=== PATIENT | female | born 1975 ===

== ENCOUNTER 2017-11-09 16:41 | Emergency (ER) | payer OTHER ==
[~2017-11-09] VITALS: Ht 154.9 cm; Wt 72.6 kg
[2017-11-09] MEDS ORDERED: SULF1TAB35 PO (17:31)
[2017-11-09] MEDS ORDERED: MUPI22OI2 TP (17:31)
[2017-11-09] MEDS ORDERED: BUTA1CAP17 PO (17:31)
--- NOTE | 2017-11-09 17:31 | ED Headache ---
General Chief Complaint: Head/Cervical Problems Stated Complaint: FACIAL SWELLING,HEADACHE Nursing Triage Note: PT STATES SHE HAS HAD A CONSTANT HEADACHE THAT STARTED LAST WEEK. PT STATES WHEN SHE WOKE UP ON MONDAY AND HAD SORE IN HER RIGHT EYEBROW. PT STATES THE PAIN THEN BEGAN RADIATING DOWN HER NECK AND TO THE BACK OF HER HEAD. PT STATES SHE FEELS THE RIGHT SIDE OF HER FACE IS SWOLLEN. Nursing Sepsis Screen: No Definite Risk Source: patient Exam Limitations: no limitations History of Present Illness Date Seen by Provider: Nov 09, 2017 Time Seen by Provider: 17:27 Initial Comments to ER with reports of a right-sided headache for 2-3 days. She's also had a pustule to the right eyebrow. She has a history of migraines but they're typically midline, this was right-sided. No fevers. Timing/Duration: other (3 days) Severity/Quality: moderate Location: frontal Associated Symptoms: denies symptoms Allergies and Home Medications Allergies Coded Allergies: No Known Allergies (Verified Allergy, Unknown, 09/08/05) Patient Home Medication List Home Medication List Reviewed: Yes Review of Systems Constitutional: see HPI Eyes: No Symptoms Reported Ears, Nose, Mouth, Throat: no symptoms reported Respiratory: no symptoms reported Cardiovascular: no symptoms reported Genitourinary: no symptoms reported Musculoskeletal: no symptoms reported Skin: no symptoms reported Psychiatric/Neurological: No Symptoms Reported Past Wxhqkon-Ezkuza-Owdjvb Hx Patient Social History Alcohol Use: Denies Use Recreational Drug Use: No 2nd Hand Smoke Exposure: No Recent Foreign Travel: No Contact w/Someone Who Travel: No Recent Infectious Disease Expo: No Recent Hopitalizations: No Physical Abuse: No Sexual Abuse: No Seasonal Allergies Seasonal Allergies: Yes Past Medical History Respiratory: No Cardiac: No Neurological: No Genitourinary: No Gastrointestinal: No Musculoskeletal: No Endocrine: No HEENT: No Cancer: No Psychosocial: No Nursing Suicide Risk Score: 0 Integumentary: No Blood Disorders: No Physical Exam Vital Signs Vital Signs - First Documented 11/09/17 16:51 Temp 96.6 Pulse 69 Resp 14 B/P (MAP) 146/103 (117) O2 Delivery Room Air Capillary Refill : Less Than 3 Seconds General Appearance: WD/WN, no apparent distress HEENT: PERRL/EOMI, normal ENT inspection, other (small induratedarea of erythema about 1 cm in diameter to the medial right eyebrow.. This was unroofed with a blunt needle, culture collected and sent to lab.) Neck: non-tender, full range of motion Respiratory: no respiratory distress, no accessory muscle use Extremities: normal range of motion, non-tender Psychiatric: alert, oriented x 3 Crainal Nerves: normal hearing, normal speech, PERRL Motor/Sensory: no motor deficit, no sensory deficit Skin: normal color, warm/dry Progress/Results/Core Measures Results/Orders My Orders Orders - ASHLEIGH BRANHAM APRN Wound Culture (11/09/17 17:26) Vital Signs/I&O 11/09/17 16:51 Temp 96.6 Pulse 69 Resp 14 B/P (MAP) 146/103 (117) O2 Delivery Room Air Blood Pressure Mean: 117 Departure Impression Primary Impression: Headache Additional Impression: pustule of eyebrow Disposition: 01 HOME, SELF-CARE Condition: Stable Departure-Patient Inst. Decision time for Depature: 17:28 Referrals: ELLA WADE MD (PCP/Family) Primary Care Physician Patient Instructions: Headache, Adult (DC) Add. Discharge Instructions: 1. Medication as directed 2. Return to ER for any worsening 3. Follow-up with your doctor within 48 hours for recheck.All discharge instructions reviewed with patient and/or family. Voiced understanding. Scripts Mupirocin (Mupirocin) 22 Gm Oint...g. 1 GM TP BID, #1 TUBE Prov: ASHLEIGH BRANHAM APRN 11/09/17 Sulfamethoxazole/Trimethoprim (Bactrim Ds Tablet) 1 Each Tablet 1 EACH PO BID, #14 TAB Prov: ASHLEIGH BRANHAM APRN 11/09/17 Butalbital/Aspirin/Caffeine (Fiorinal 50-325-40 mg Capsule) 1 Each Capsule 1 EACH PO Q4H PRN for HEADACHE, #5 CAP Prov: ASHLEIGH BRANHAM APRN 11/09/17 ASHLEIGH BRANHAM APRN Nov 09, 2017 17:31
[2017-11-09 17:36] VITALS: BP 131/88
--- OUTSIDE RECORDS SUMMARY | 2017-11-09 18:03 | XMS REPORT ---
Author Author RAJIV MONTOYA [facility] Address [address] [place] [address] Care Team Providers Care Product Manager Name Role Phone RAJIV MONTOYA Unavailable PROBLEMS Type Condition ICD9-CM Code [id number] Code Onset Dates Condition Status SNOMED Code Problem Breast lump on right side at 7 o'clock position N63 Active [id number] ALLERGIES No Known Allergies SOCIAL HISTORY Never Assessed PLAN OF CARE Activity Details Follow Up prn with pcp Reason: VITAL SIGNS Height 63 in 2016-09-22 Weight 160.5 lbs 2016-09-22 Temperature 97.1 degrees Fahrenheit 2016-09-22 Heart Rate 72 bpm 2016-09-22 Respiratory Rate 16 2016-09-22 BMI 28.43 kg/m2 2016-09-22 Blood pressure systolic 104 mmHg 2016-09-22 Blood pressure diastolic 66 mmHg 2016-09-22 MEDICATIONS Medication Instructions Dosage Frequency Start Date End Date Duration Status PredniSONE 20 mg Orally Once a day 1 tablet 24h September, September, 07 days Active RESULTS No Results PROCEDURES No Known procedures IMMUNIZATIONS No Known Immunizations MEDICAL (GENERAL) HISTORY Type Description Date Surgical History Appendectomy
== END 2017-11-09 17:36 | disposition home or self-care (01) ==
LOC: EDUNIT# 16:41 → ER 16:44
DX: R51 Headache (principal); L08.9 Local infection of the skin and subcutaneous tissue, unspecified
CPT/HCPCS: 87070; 87077; 87186; 87205; 99282

== ENCOUNTER 2019-02-14 17:19 | Emergency (ER) | payer OTHER ==
[~2019-02-14] VITALS: Ht 160 cm; Wt 67.7 kg
[~2019-02-14 17:19] MED LIST: BUTA1CAP17 PO; MUPI22OI2 TP; SULF1TAB35 PO
--- NOTE | 2019-02-14 17:38 | ED Abdominal Pain ---
General Stated Complaint: LOWER ABD PAIN Source of Information: Patient Exam Limitations: No Limitations History of Present Illness Date Seen by Provider: Feb 14, 2019 Time Seen by Provider: 17:36 Initial Comments To ER with reports of left lower abdominal pain since Monday that's also when her menstrual cycle started. She gets this pain left-sided only consistently with every menstrual cycle for over a year. Today her pain is much worse than usual and she has an associated headache and nausea. She has taken nothing at home for the pain Timing/Duration: Intermittent Severity/Quality: Moderate Location: LLQ Radiation: No Radiation Activities at Onset: None Associated Symptoms: Nausea/Vomiting Allergies and Home Medications Allergies Coded Allergies: No Known Allergies (Verified Allergy, Unknown, 09/08/05) Home Medications Butalbital/Aspirin/Caffeine 1 Each Capsule, 1 EACH PO Q4H PRN for HEADACHE Prescribed by: ASHLEIGH BRANHAM on 11/09/171730 Cephalexin 500 Mg Capsule, 500 MG PO TID Prescribed by: ASHLEIGH BRANHAM on 02/14/191902 Mupirocin 22 Gm Oint...g., 1 GM TP BID Prescribed by: ASHLEIGH BRANHAM on 11/09/171730 Sulfamethoxazole/Trimethoprim 1 Each Tablet, 1 EACH PO BID Prescribed by: ASHLEIGH BRANHAM on 11/09/171730 Patient Home Medication List Home Medication List Reviewed: Yes Review of Systems Review of Systems Constitutional: see HPI EENTM: No Symptoms Reported Respiratory: No Symptoms Reported Cardiovascular: No Symptoms Reported Gastrointestinal: See HPI, Abdominal Pain Genitourinary: No Symptoms Reported Musculoskeletal: no symptoms reported Skin: no symptoms reported Psychiatric/Neurological: No Symptoms Reported Endocrine: No Symptoms Reported Hematologic/Lymphatic: No Symptoms Reported Past Jzxgtec-Xruuqi-Tzgrlr Hx Patient Social History 2nd Hand Smoke Exposure: No Recent Foreign Travel: No Contact w/Someone Who Travel: No Recent Hopitalizations: No Seasonal Allergies Seasonal Allergies: Yes Past Medical History Respiratory: No Cardiac: No Neurological: No Genitourinary: No Gastrointestinal: No Musculoskeletal: No Endocrine: No HEENT: No Cancer: No Psychosocial: No Integumentary: No Blood Disorders: No Physical Exam Vital Signs Vital Signs - First Documented 02/14/19 17:28 Temp 36.5 Pulse 84 Resp 17 B/P (MAP) 121/95 (104) Pulse Ox 97 O2 Delivery Room Air Capillary Refill : Height/Weight/BMI Height: 5'1.00" Weight: 160lbs. oz. 72.268023cj; BMI Method:Stated General Appearance: WD/WN, no apparent distress Respiratory: no respiratory distress, no accessory muscle use Cardiovascular: regular rate, rhythm, no murmur Gastrointestinal: normal bowel sounds, soft, tenderness (left side of the abdomen is very tender to palpation) Extremities: normal range of motion, non-tender Neurologic/Psychiatric: alert, normal mood/affect, oriented x 3 Skin: normal color, warm/dry Progress/Results/Core Measures Results/Orders Lab Results Laboratory Tests Test 02/14/19 17:37 02/14/19 18:09 Range/Units White Blood Count 7.3 4.3-11.0 10^3/uL Red Blood Count 4.79 4.35-5.85 10^6/uL Hemoglobin 13.5 11.5-16.0 G/DL Hematocrit 40 35-52 % Mean Corpuscular Volume 84 80-99 FL Mean Corpuscular Hemoglobin 28 25-34 PG Mean Corpuscular Hemoglobin Concent 34 32-36 G/DL Red Cell Distribution Width 13.4 10.0-14.5 % Platelet Count 317 130-400 10^3/uL Mean Platelet Volume 9.4 7.4-10.4 FL Neutrophils (%) (Auto) 58 42-75 % Lymphocytes (%) (Auto) 34 12-44 % Monocytes (%) (Auto) 6 0-12 % Eosinophils (%) (Auto) 3 0-10 % Basophils (%) (Auto) 0 0-10 % Neutrophils # (Auto) 4.2 1.8-7.8 X 10^3 Lymphocytes # (Auto) 2.4 1.0-4.0 X 10^3 Monocytes # (Auto) 0.4 0.0-1.0 X 10^3 Eosinophils # (Auto) 0.2 0.0-0.3 10^3/uL Basophils # (Auto) 0.0 0.0-0.1 10^3/uL Sodium Level 139 135-145 MMOL/L Potassium Level 3.7 3.6-5.0 MMOL/L Chloride Level 108 H 98-107 MMOL/L Carbon Dioxide Level 24 21-32 MMOL/L Anion Gap 7 5-14 MMOL/L Blood Urea Nitrogen 10 7-18 MG/DL Creatinine 0.65 0.60-1.30 MG/DL Estimat Glomerular Filtration Rate > 60 BUN/Creatinine Ratio 15 Glucose Level 102 70-105 MG/DL Calcium Level 9.1 8.5-10.1 MG/DL Corrected Calcium 9.1 8.5-10.1 MG/DL Total Bilirubin 0.2 0.1-1.0 MG/DL Aspartate Amino Transf (AST/SGOT) 32 5-34 U/L Alanine Aminotransferase (ALT/SGPT) 38 0-55 U/L Alkaline Phosphatase 76 40-136 U/L Total Protein 8.1 6.4-8.2 GM/DL Albumin 4.0 3.2-4.5 GM/DL Serum Test, Qualitative NEGATIVE NEGATIVE Urine Color YELLOW Urine Clarity CLEAR Urine pH 7 5-9 Urine Specific [place] 1.005 L 1.016-1.022 Urine Protein NEGATIVE NEGATIVE Urine Glucose (UA) NEGATIVE NEGATIVE Urine Ketones NEGATIVE NEGATIVE Urine Nitrite NEGATIVE NEGATIVE Urine Bilirubin NEGATIVE NEGATIVE Urine Urobilinogen NORMAL NORMAL MG/DL Urine Leukocyte Esterase 2+ H NEGATIVE Urine RBC (Auto) 5+ H NEGATIVE Urine RBC 10-25 H /HPF Urine WBC 5-10 H /HPF Urine Squamous Epithelial Cells 10-25 H /HPF Urine Crystals NONE /LPF Urine Bacteria FEW H /HPF Urine Casts NONE /LPF Urine Mucus NEGATIVE /LPF Urine Culture Indicated YES My Orders Orders - ASHLEIGH BRANHAM APRN Cbc With Automated Diff (02/14/19 17:35) Comprehensive Metabolic Panel (02/14/19 17:35) Hcg,Qualitative Serum (02/14/19 17:35) Ed Iv/Invasive Line Start (02/14/19 17:35) Ct Abdomen/Pelvis W (02/14/19 17:35) Ns Iv 1000 Ml (Sodium Chloride 0.9%) (02/14/19 17:45) Ketorolac Injection (Toradol Injection) (02/14/19 17:45) Ondansetron Injection (Zofran Injectio (02/14/19 17:45) Iohexol Injection (Omnipaque 350 Mg/Ml 1 (02/14/19 17:45) Received Contrast (Hold Metformin- Contr (02/14/19 17:45) Sodium Chloride Flush (Catheter Flush Sy (02/14/19 17:45) Ns (Ivpb) (Sodium Chloride 0.9% Ivpb Bag (02/14/19 17:45) Prochlorperazine Injection (Compazine In (02/14/19 19:00) Diphenhydramine Injection (Benadryl Inje (02/14/19 19:00) Medications Given in ED Current Medications Medications Dose Ordered Sig/Edwin Route Start Time Stop Time Status Last Admin Dose Admin Iohexol 100 ml ONCE ONCE IV 02/14/19 17:45 02/14/19 17:46 DC 02/14/19 18:27 85 ML Ketorolac Tromethamine 30 mg ONCE ONCE IVP 02/14/19 17:45 02/14/19 17:46 DC 02/14/19 17:45 30 MG Ondansetron HCl 8 mg ONCE ONCE IVP 02/14/19 17:45 02/14/19 17:46 DC 02/14/19 17:45 8 MG Sodium Chloride 10 ml NEEDED PRN IV 02/14/19 17:45 02/14/19 18:27 10 ML Sodium Chloride 100 ml ONCE ONCE IV 02/14/19 17:45 02/14/19 17:46 DC 02/14/19 18:27 80 ML Vital Signs/I&O 02/14/19 17:28 Temp 36.5 Pulse 84 Resp 17 B/P (MAP) 121/95 (104) Pulse Ox 97 O2 Delivery Room Air Departure Impression Primary Impression: Menstrual pain Additional Impressions: Headache Qualified Codes: R51 - Headache Urinary tract infection Disposition: HOME, SELF-CARE Condition: Stable Departure-Patient Inst. Decision time for Depature: 19:01 Referrals: ELLA WADE MD (PCP/Family) Primary Care Physician Patient Instructions: Painful Periods, Headache, Adult Add. Discharge Instructions: 1. Call one of the gynecologists listed to make an appointment to be seen for follow-up. Call them tomorrow to make an appointment. Next menstrual cycle use Midol ykqm-elg-qeczlup medication for pain. Return to ER for any fevers or other concerns. Scripts Cephalexin (Keflex) 500 Mg Capsule 500 MG PO TID, #15 CAP Prov: ASHLEIGH BRANHAM STOCK ANALYST 02/14/19 ASHLEIGH BRANHAM STOCK ANALYST Feb 14, 2019 17:38
[2019-02-14] MEDS ORDERED: ONDANSETRON 4 MG/2 ML (SDV) Z0FRAN IVP ONE (17:45)
[2019-02-14] MEDS ORDERED: IOHEXOL 350 MG/ML 100 ML (OMNIPAQUE 350) VIAL IV ONE (17:45)
[2019-02-14] MEDS ORDERED: CATHETER FLUSH 10 ML SYR IV PRN (17:45)
[2019-02-14] MEDS ORDERED: NS 100 ML (IVPB) BAG IV ONE (17:45)
[2019-02-14] MEDS ORDERED: NS IV 1000 ML 1,000 ML IV SCH (17:45)
[2019-02-14] MEDS ORDERED: KETOROLAC 30 MG/ML VIAL IVP ONE (17:45)
[2019-02-14] MEDS ORDERED: HOLD METFORMIN - RECEIVED CONTRAST 20 ML VIAL IV SCH (17:45)
[2019-02-14 17:46] LABS: BASOPHILS % (AUTO) 0 % (0-10); EOSINOPHILS # (AUTO) 0.2 10^3/uL (0.0-0.3); EOSINOPHILS % (AUTO) 3 % (0-10); HEMATOCRIT 40 % (35-52); HEMOGLOBIN 13.5 G/DL (11.5-16.0); LYMPHOCYTES # (AUTO) 2.4 X 10^3 (1.0-4.0); LYMPHOCYTES % (AUTO) 34 % (12-44); MEAN CORPUSCULAR HEMOGLOBIN 28 PG (25-34); MEAN CORPUSCULAR HGB CONC 34 G/DL (32-36); MEAN CORPUSCULAR VOLUME 84 FL (80-99); MEAN PLATELET VOLUME 9.4 FL (7.4-10.4); MONOCYTES # (AUTO) 0.4 X 10^3 (0.0-1.0); MONOCYTES % (AUTO) 6 % (0-12); NEUTROPHILS # (AUTO) 4.2 X 10^3 (1.8-7.8); NEUTROPHILS % (AUTO) 58 % (42-75); PLATELET COUNT 317 10^3/uL (130-400); RED CELL DISTRIBUTION WIDTH 13.4 % (10.0-14.5); WHITE BLOOD COUNT 7.3 10^3/uL (4.3-11.0)
[2019-02-14 18:08] LABS: ALANINE AMINOTRANSFERASE 38 U/L (0-55); ALKALINE PHOSPHATASE 76 U/L (40-136); BILIRUBIN,TOTAL 0.2 MG/DL (0.1-1.0); BUN/CREATININE RATIO 15; CALCIUM 9.1 MG/DL (8.5-10.1); CARBON DIOXIDE 24 MMOL/L (21-32); CHLORIDE 108 MMOL/L (98-107); CREATININE SERUM 0.65 MG/DL (0.60-1.30); GFR ESTIMATED > 60; GLUCOSE 102 MG/DL (70-105); POTASSIUM 3.7 MMOL/L (3.6-5.0); SODIUM 139 MMOL/L (135-145); TOTAL PROTEIN 8.1 GM/DL (6.4-8.2)
[2019-02-14 18:17] LABS: BILIRUBIN,URINE NEGATIVE (NEGATIVE); CLARITY,URINE CLEAR; COLOR,URINE YELLOW; GLUCOSE, URINE (UA) NEGATIVE (NEGATIVE); KETONES,URINE NEGATIVE (NEGATIVE); LEUKOCYTE ESTERASE ,URINE 2+ (NEGATIVE); NITRITE,URINE NEGATIVE (NEGATIVE); PH,URINE 7 (5-9); PROTEIN,URINE NEGATIVE (NEGATIVE); UROBILINOGEN,URINE NORMAL (NORMAL)
[2019-02-14 18:33] LABS: BACTERIA,URINE FEW /HPF
--- NOTE | 2019-02-14 18:41 | Diagnostic Imaging Report ---
PROCEDURE: CT abdomen and pelvis with contrast. TECHNIQUE: Multiple contiguous axial images were obtained through the abdomen and pelvis after administration of intravenous contrast. Auto Exposure Controls were utilized during the CT exam to meet ALARA standards for radiation dose reduction. DATE: February 14, 2019. COMPARISON: Right upper quadrant abdominal ultrasound June 02, 2009. INDICATION: 43-year-old female, nausea and dizziness. Left lower quadrant and flank pain. FINDINGS: The visualized portions of the lung bases are clear. The heart is not enlarged. There is no pericardial effusion. The liver is unremarkable in size and contour. There is no identified liver lesion. The main, right, and left portal veins are patent. There is a possible gallstone without evidence of acute cholecystitis. There is no biliary ductal dilation. The main pancreatic duct is not abnormally dilated. Unremarkable appearance of the pancreatic parenchyma. The spleen is normal in size. There is an accessory splenule on axial image 21. The adrenal glands are unremarkable. Unremarkable appearance of the renal parenchyma. The urinary collecting systems are not distended. There is no identified renal or ureteral stone. The urinary bladder is unremarkable. Grossly unremarkable appearance of the uterus and adnexa for patient age. There is no evidence of acute appendicitis. There is no free intraperitoneal air. There is no drainable fluid collection. There is no free pelvic fluid. There is no identified abnormally enlarged lymph node in the abdomen or pelvis which meets CT size criteria for adenopathy. There is no identified acute bony abnormality. IMPRESSION: CT ABDOMEN AND PELVIS. 1. No identified acute abnormality in the abdomen or pelvis. Dictated by: Dictated on workstation # [id number]
[2019-02-14] MEDS ORDERED: PROCHLORPERAZINE 10 MG/2ML INJ (COMPAZINE) IV ONE (19:00)
[2019-02-14] MEDS ORDERED: diphenhydrAMINE 50 MG/ML INJ (BENADRYL) IVP ONE (19:00)
[2019-02-14] MEDS ORDERED: CEPH-507 PO (19:03)
[2019-02-14 20:03] VITALS: BP 119/88
== END 2019-02-14 20:03 | disposition home or self-care (01) ==
LOC: EDUNIT# 17:19 → ER 17:20
DX: N94.6 Dysmenorrhea, unspecified (principal); N39.0 Urinary tract infection, site not specified; R51 Headache; Z79.82 Long term (current) use of aspirin
CPT/HCPCS: 36415; 74177; 80053; 81000; 84703; 85025; 87088; 96361; 96374; 96375

== ENCOUNTER 2019-04-27 23:53 | Emergency (ER) | payer OTHER ==
[~2019-04-27] VITALS: Ht 160 cm; Wt 68.0 kg
[~2019-04-27 23:53] MED LIST changes: +CEPH-507 PO
[2019-04-28] MEDS ORDERED: IBUPROFEN TABLET 200 MG TAB PO ONE (00:45)
--- NOTE | 2019-04-28 01:16 | ED General ---
General Chief Complaint: Cough/Cold/Flu Symptoms Stated Complaint: FEVER,COUGH Nursing Triage Note: pt presents to ed room 6 ambulatory c/o cough and fever that has been ongoing since monday. Nursing Sepsis Screen: No Definite Risk Source of Information: Patient Exam Limitations: No Limitations History of Present Illness Date Seen by Provider: Apr 28, 2019 Time Seen by Provider: 00:27 Initial Comments This 43-year-old woman presents to the emergency room with complaints of flulike symptoms including fever, headache, sore throat, congestion, runny nose, cough, and chest discomfort for the past 5 days. She took a cold and flu medication at home. She did not receive a flu vaccine this year. Allergies and Home Medications Allergies Coded Allergies: No Known Allergies (Verified Allergy, Unknown, 09/08/05) Home Medications Butalbital/Aspirin/Caffeine 1 Each Capsule, 1 EACH PO Q4H PRN for HEADACHE Prescribed by: ASHLEIGH BRANHAM on 11/09/17 173 Cephalexin 500 Mg Capsule, 500 MG PO TID Prescribed by: ASHLEIGH BRANHAM on 02/14/19 1903 Mupirocin 22 Gm Oint...g., 1 GM TP BID Prescribed by: ASHLEIGH BRANHAM on 11/09/17 173 Sulfamethoxazole/Trimethoprim 1 Each Tablet, 1 EACH PO BID Prescribed by: ASHLEIGH BRANHAM on 11/09/171730 Patient Home Medication List Home Medication List Reviewed: Yes Review of Systems Review of Systems Constitutional: see HPI EENTM: see HPI Respiratory: see HPI Cardiovascular: no symptoms reported Gastrointestinal: no symptoms reported Genitourinary: no symptoms reported : No LMP: Apr 07, 2019 Musculoskeletal: see HPI Skin: no symptoms reported Psychiatric/Neurological: See HPI Hematologic/Lymphatic: No Symptoms Reported Past Xghlejn-Bpbxcx-Ruiisu Hx Past Med/Social Hx: Reviewed Nursing Past Med/Soc Hx Patient Social History Alcohol Use: Denies Use Recreational Drug Use: No Smoking Status: Never a Smoker 2nd Hand Smoke Exposure: No Recent Foreign Travel: No Contact w/Someone Who Travel: No Recent Infectious Disease Expo: No Recent Hopitalizations: No Physical Abuse: No Sexual Abuse: No Mistreated: No Fear: No Immunizations Up To Date Tetanus Booster (TDap): Unknown PED Vaccines UTD: Yes Seasonal Allergies Seasonal Allergies: Yes Past Medical History Surgeries: Yes Appendectomy Respiratory: No Cardiac: No Neurological: No : No Last Menstrual Period: Apr 07, 2019 Genitourinary: No Gastrointestinal: No Musculoskeletal: No Endocrine: No HEENT: No Cancer: No Psychosocial: No Integumentary: No Blood Disorders: No Physical Exam Vital Signs Vital Signs - First Documented 04/28/19 04/28/19 00:02 00:05 Temp 37.4 Pulse 122 Resp 20 B/P (MAP) 153/107 (122) Pulse Ox 99 O2 Delivery Room Air Capillary Refill : Less Than 3 Seconds Height, Weight, BMI Height: 5'1.00" Weight: 160lbs. oz. 72.678649yu; 26.00 BMI Method:Stated General Appearance: No Apparent Distress, WD/WN HEENT: PERRL/EOMI, TMs Normal, Normal ENT Inspection, Pharynx Normal Neck: Normal Inspection Respiratory: Lungs Clear, Normal Breath Sounds, No Accessory Muscle Use, No Respiratory Distress; No Crackles Cardiovascular: No Edema, No Murmur, Tachycardia Extremity: Normal Inspection, No Pedal Edema Neurologic/Psychiatric: Alert, Oriented x3, No Motor/Sensory Deficits, Normal Mood/Affect, electrical logger II-XII Norm as Tested Skin: Normal Color, Warm/Dry Progress/Results/Core Measures Suspected Sepsis Recent Fever Within 48 Hours: No Infection Criteria Present: Suspected New Infection New/Unexplained Altered Menta: No Sepsis Screen: No Definite Risk SIRS Temperature: Pulse: 122 Respiratory Rate: 20 Blood Pressure 153 /107 Mean: 122 Results/Orders Lab Results Laboratory Tests Test 04/28/19 00:30 Range/Units Urine Test NEGATIVE NEGATIVE Micro Results Microbiology 04/28/19 Influenza Types A,B Antigen (DIMITRY) - Final, Complete My Orders Orders - MICHELLE FLORES MD Influenza A And B Antigens (04/28/19 00:29) Ibuprofen Tablet (Motrin Tablet) (04/28/19 00:45) Hcg,Qualitative Urine (04/28/19 00:44) Medications Given in ED Current Medications Medications Dose Ordered Sig/Edwin Route Start Time Stop Time Status Last Admin Dose Admin Ibuprofen 600 mg ONCE ONCE PO 04/28/19 00:45 04/28/19 00:46 DC 04/28/19 00:49 600 MG Vital Signs/I&O 04/28/19 04/28/19 04/28/19 00:02 00:05 01:22 Temp 37.4 37.4 Pulse 122 122 Resp 20 20 B/P (MAP) 153/107 (122) 153/107 (122) Pulse Ox 99 99 O2 Delivery Room Air Capillary Refill : Less Than 3 Seconds Blood Pressure Mean: 122 Progress Note : Progress Note Patient received ibuprofen for headache and myalgias. She tested positive for influenza A. Unfortunately, she is too far into the illness for Tamiflu to be effective. Departure Impression Primary Impression: Influenza Disposition: 01 HOME, SELF-CARE Condition: Improved Departure-Patient Inst. Decision time for Depature: 01:14 Referrals: NO,LOCAL PHYSICIAN (PCP/Family) Primary Care Physician Patient Instructions: Flu, Adult (DC) Add. Discharge Instructions: Drink plenty of clear liquids. To manage fever and pains a take ibuprofen up to 600 mg every 6 hours and Tylenol (acetaminophen) up to 1000 mg every 6 hours. Return to care if you have worsening symptoms despite hydration and treatment with uwdt-mny-pqakqoc medications. Please avoid contact with other people until your symptoms have resolved for 24 hours. All discharge instructions reviewed with patient and/or family. Voiced understanding. MICHELLE FLORES MD Apr 28, 2019 01:15
[2019-04-28 01:22] VITALS: BP 153/107
== END 2019-04-28 01:27 | disposition home or self-care (01) ==
LOC: EDUNIT# 23:53 → ER 23:55
DX: J11.1 Influenza due to unidentified influenza virus with other respiratory manifestations (principal); Z90.49 Acquired absence of other specified parts of digestive tract
CPT/HCPCS: 84703; 87804

== ENCOUNTER 2019-07-20 16:25 | Emergency (ER) | payer OTHER ==
[~2019-07-20] VITALS: Ht 160 cm; Wt 63.0 kg
--- NOTE | 2019-07-20 16:28 | NUR ---
PT NOT IN WAITING ROOM AT THIS TIME.
[2019-07-20 16:53] LABS: BILIRUBIN,URINE NEGATIVE (NEGATIVE); CLARITY,URINE CLEAR; COLOR,URINE YELLOW; GLUCOSE, URINE (UA) NEGATIVE (NEGATIVE); KETONES,URINE NEGATIVE (NEGATIVE); LEUKOCYTE ESTERASE ,URINE NEGATIVE (NEGATIVE); NITRITE,URINE NEGATIVE (NEGATIVE); PH,URINE 5.5 (5-9); PROTEIN,URINE NEGATIVE (NEGATIVE)
--- NOTE | 2019-07-20 16:56 | ED Headache ---
General Chief Complaint: Head/Cervical Problems Stated Complaint: HEADACHE Nursing Triage Note: PT TO ED W/ C/O HEADACHE ONSET LAST NOC, WORSE TODAY. DENIES TAKING ANY MEDS FOR COMPLAINT. DENIES N/V, SENSITIVITY TO LIGHT AND SOUND Nursing Sepsis Screen: No Definite Risk Source: patient History of Present Illness Date Seen by Provider: Jul 20, 2019 Time Seen by Provider: 16:36 Initial Comments PT ARRIVES VIA POV--STATES SOMEONE DROPPED HER OFF--SON IS WITH HER C/O HEADACHE SINCE LAST NIGHT PAIN IS ON RIGHT SIDE OF HEAD--PARIETAL AREA AND OCCIPUT PT STATES FOR THE LAST MONTH, ONLY WHEN SHE DRIVES, SHE GETS SEVERE PRESSURE IN HER WHOLE HEAD AND THEN SHE FEELS LIKE SHE IS GOING TO THROW UP. DOES NOT HAVE THOSE SYMPTOMS NOW. AND THEY ONLY OCCUR WHEN SHE DRIVES NO NAUSEA AND VOMITING OTHERWISE NO VISION CHANGES NO PARESTHESIAS OR MOTOR DEFICITS NO DIZZINESS NO FEVER, OR RECENT ILLNESS, NO URI/SINUS SYMPTOMS NO KNOWN SICK CONTACTS, NO KNOWN EXPOSURE TO FLU OR CORONAVIRUS. NO RECENT TRAVEL. PT STATES SHE HAS NOT BEEN SLEEPING, IS IN THE PROCESS OF MOVING, BUT DENIES ANY LIFTING, ETC. STATES SHE HAS BEEN ALOT OF STRESS OVER THE LAST MONTH DOES NOT TYPICALLY HAVE HEADACHES HAS NOT TAKEN ANYTHING FOR SYMPTOMS AT ANY TIME SYMPTOMS ARE NOT WORSENING NOTHING WORSENS HEADACHE NO NECK PAIN OR STIFFNESS STATES SHE DOES NOT HAVE ANY MEDICAL PROBLEMS OR TAKE ANY MEDICATIONS LMP --ENDED 3 DAYS AGO. NORMAL. NO CONTROL [place]CP: [facility] [place] and Home Medications Allergies Coded Allergies: No Known Allergies (Verified Allergy, Unknown, 09/08/05) Home Medications Butalbital/Aspirin/Caffeine 1 Each Capsule, 1 EACH PO Q4H PRN for HEADACHE Prescribed by: ASHLEIGH BRANHAM on 11/09/171730 Cephalexin 500 Mg Capsule, 500 MG PO TID Prescribed by: ASHLEIGH BRANHAM on 02/14/191902 Mupirocin 22 Gm Oint...g., 1 GM TP BID Prescribed by: ASHLEIGH BRANHAM on 11/09/171730 Sulfamethoxazole/Trimethoprim 1 Each Tablet, 1 EACH PO BID Prescribed by: ASHLEIGH BRANHAM on 11/09/171730 Patient Home Medication List Home Medication List Reviewed: Yes Review of Systems Review of Systems Constitutional: no symptoms reported; No dizziness, No fever Eyes: No Symptoms Reported; Denies Photophobia, Denies Vision Changes Ears, Nose, Mouth, Throat: no symptoms reported; denies nose discharge, denies throat pain Respiratory: no symptoms reported Cardiovascular: no symptoms reported Gastrointestinal: see HPI Genitourinary: no symptoms reported Musculoskeletal: no symptoms reported Skin: no symptoms reported Psychiatric/Neurological: See HPI, Anxiety, Headache; Denies Numbness, Denies Paresthesia, Denies Seizure, Denies Tingling, Denies Weakness Past Cfzoxtu-Pnvnrc-Tkzzxv Hx Past Med/Social Hx: Reviewed and Corrections made Patient Social History Alcohol Use: Occasionally Uses Recreational Drug Use: No Smoking Status: Never a Smoker 2nd Hand Smoke Exposure: No Recent Foreign Travel: No Contact w/Someone Who Travel: No Recent Infectious Disease Expo: No Recent Hopitalizations: No Physical Abuse: No Sexual Abuse: No Mistreated: No Fear: No Immunizations Up To Date Tetanus Booster (TDap): Unknown PED Vaccines UTD: Yes Seasonal Allergies Seasonal Allergies: Yes Past Medical History Surgeries: Yes Appendectomy Respiratory: No Cardiac: No Neurological: No : No Reproductive Disorders: No Genitourinary: No Gastrointestinal: No Musculoskeletal: No Endocrine: No HEENT: No Cancer: No Psychosocial: No Integumentary: No Blood Disorders: No Physical Exam Vital Signs Vital Signs - First Documented 07/20/19 16:29 Temp 36.9 Pulse 102 Resp 18 B/P (MAP) 119/80 (93) Pulse Ox 98 O2 Delivery Room Air Capillary Refill : Less Than 3 Seconds Height, Weight, BMI Height: 5'1.00" Weight: 160lbs. oz. 72.081585ew; 24.00 BMI Method:Stated General Appearance: WD/WN, no apparent distress, other (DEOS NOT APPEAR ILL OR TO BE IN ANY DISCOMFORT OR DISTRESS. NO PHOTOPHOBIA, MOVES WITHOUT DIFFICULTY) HEENT: PERRL/EOMI, normal ENT inspection, TMs normal, pharynx normal Neck: full range of motion, supple, other (BILATERAL CERVICAL AND TRAPEZIUS MUSCLE SPASMS AND TENDERNESS, ) Cardiovascular: regular rate, rhythm, no murmur Respiratory: normal breath sounds Gastrointestinal: non tender, soft Back: normal inspection, no CVA tenderness, no vertebral tenderness Extremities: normal range of motion, non-tender, normal inspection, no pedal edema, no calf tenderness Psychiatric: alert, oriented x 3 Crainal Nerves: normal hearing, normal speech, PERRL Coordination/Gait: normal gait Motor/Sensory: no motor deficit, no sensory deficit Skin: normal color, warm/dry; No rash Progress/Results/Core Measures Results/Orders Lab Results Laboratory Tests Test 07/20/19 16:45 Range/Units Urine Color YELLOW Urine Clarity CLEAR Urine pH 5.5 5-9 Urine Specific [place] >=1.030 1.016-1.022 Urine Protein NEGATIVE NEGATIVE Urine Glucose (UA) NEGATIVE NEGATIVE Urine Ketones NEGATIVE NEGATIVE Urine Nitrite NEGATIVE NEGATIVE Urine Bilirubin NEGATIVE NEGATIVE Urine Urobilinogen 1.0 < = 1.0 MG/DL Urine Leukocyte Esterase NEGATIVE NEGATIVE Urine RBC (Auto) NEGATIVE NEGATIVE Urine RBC 0-2 /HPF Urine WBC RARE /HPF Urine Squamous Epithelial Cells 25-50 H /HPF Urine Renal Epithelial Cells NONE /HPF Urine Crystals NONE /LPF Urine Bacteria TRACE /HPF Urine Casts NONE /LPF Urine Mucus NEGATIVE /LPF Urine Culture Indicated NO Urine Opiates Screen NEGATIVE NEGATIVE Urine Oxycodone Screen NEGATIVE NEGATIVE Urine Methadone Screen NEGATIVE NEGATIVE Urine Propoxyphene Screen NEGATIVE NEGATIVE Urine Barbiturates Screen NEGATIVE NEGATIVE Ur Tricyclic Antidepressants Screen NEGATIVE NEGATIVE Urine Phencyclidine Screen NEGATIVE NEGATIVE Urine Amphetamines Screen NEGATIVE NEGATIVE Urine Methamphetamines Screen NEGATIVE NEGATIVE Urine Benzodiazepines Screen NEGATIVE NEGATIVE Urine Cocaine Screen NEGATIVE NEGATIVE Urine Cannabinoids Screen NEGATIVE NEGATIVE My Orders Orders - DEREK VALENCIA DO Urine Bedside (07/20/19 16:39) Drug Screen Stat (Urine) (07/20/19 16:39) Ua Culture If Indicated (07/20/19 16:39) Ketorolac Injection (Toradol Injection) (07/20/19 17:00) Orphenadrine Injection (Norflex Injectio (07/20/19 17:00) Diphenhydramine Injection (Benadryl Inje (07/20/19 17:00) Medications Given in ED Vital Signs/I&O 07/20/19 07/20/19 16:29 17:34 Temp 36.9 36.9 Pulse 102 89 Resp 18 18 B/P (MAP) 119/80 (93) 110/80 (93) Pulse Ox 98 98 O2 Delivery Room Air Room Air Blood Pressure Mean: 93 Departure Impression Primary Impression: Tension type headache Disposition: 01 HOME, SELF-CARE Condition: Stable Departure-Patient Inst. Referrals: NO,LOCAL PHYSICIAN (PCP/Family) Primary Care Physician Patient Instructions: Tension Headache (DC) Add. Discharge Instructions: HOME. REST LOTS OF CLEAR LIQUIDS TYLENOL 1 GRAM / MOTRIN 800 MG 4 TIMES A DAY NEEDED FOR PAIN MOIST HEAT TO NECK AND UPPER BACK FOLLOW UP WITH [facility] IN 2-3 DAYS IF NO BETTER, RETURN TO ER IF WORSE All discharge instructions reviewed with patient and/or family. Voiced understanding. DEREK VALENCIA DO Jul 20, 2019 16:56
[2019-07-20 17:00] LABS: BACTERIA,URINE TRACE /HPF; RBC,URINE 0-2 /HPF; WBC,URINE RARE /HPF
[2019-07-20] MEDS ORDERED: diphenhydrAMINE 50 MG/ML INJ (BENADRYL) IM ONE (17:00)
[2019-07-20] MEDS ORDERED: KETOROLAC 60 MG/2 ML VIAL IM ONE (17:00)
[2019-07-20] MEDS ORDERED: ORPHENADRINE 60 MG/2 ML (NORFLEX) AMP IM ONE (17:00)
[2019-07-20 17:01] LABS: SQUAMOUS EPITHELIAL CELL,UR 25-50 /HPF
[2019-07-20 17:07] LABS: AMPHETAMINE SCREEN, URINE NEGATIVE (NEGATIVE); BARBITURATE SCREEN URINE NEGATIVE (NEGATIVE); BENZODIAZEPINES SCREEN URINE NEGATIVE (NEGATIVE); CANNABINOID SCREEN, URINE NEGATIVE (NEGATIVE); COCAINE SCREEN URINE NEGATIVE (NEGATIVE); METHADONE STAT NEGATIVE (NEGATIVE); METHAMPHETAMINE SCREEN URINE S NEGATIVE (NEGATIVE); OPIATE SCREEN URINE NEGATIVE (NEGATIVE); OXYCODONE STAT NEGATIVE (NEGATIVE); PROPOXYPHENE STAT NEGATIVE (NEGATIVE); TRICYCLIC ANTIDEPRESSANTS SCRE NEGATIVE (NEGATIVE)
[2019-07-20 17:34] VITALS: BP 110/80
--- OUTSIDE RECORDS SUMMARY | 2019-07-21 20:56 | XMS REPORT ---
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 Active 908556441 ALLERGIES No Information ENCOUNTERS Encounter Location Date Diagnosis [address] [address] Oct, Other headache syndrome G44.[address] [address] September, Eustachian tube dysfunction, bilateral H 69.[address] [address] Aug, Breast lump on right side at 7 o'clock p osition N63 and Eustachian tube dysfunction, bilateral H69.[address] [address] Jul, Routine health maintenance Z00.[address] [address] Jul, Routine health maintenance Z00.00 ; Fami ly history of diabetes mellitus Z83.3 ; Family history of hypertension Z82.49 ; Pain in right shoulder M25.511 ; Pain in left shoulder M25.512 ; Allergic rhinitis J30.9 and Tinea versicolor B36.0 [place] [address] [address] Nov, Otitis media 382.9 ; Ear pain, left 388. 70 and Vertigo 780.4 [facility] [address] [id number] [place] [address] 10 Oct, 2014 Sinusitis 473.9 [facility] [address] [id number] [place] [address] 2014 [facility] [address] [id number] [place] [address] Aug, [facility] [address] [id number] [place] [address] Aug, [facility] [address] [id number] [place] [address] Aug, [facility] [address] [id number] [place] [address] Aug, [facility] [address] [id number] [place] [address] 16 Aug, 2013 [facility] [address] [place] [id number] [place] [address] Aug, [facility] [address] [id number] [place] [address] May, [facility] [address] [place] [id number] [place] [address] May, [facility] [address] [id number] [place] [address] September, [facility] [address] [place] [id number] [place] [address] September, [facility] [address] [id number] [place] [address] September, [facility] [address] [id number] [place] [address] September, [facility] [address] [id number] [place] [address] Aug, [facility] [address] [id number] [place] [address] May, [facility] [address] [id number] [place] [address] Oct, IMMUNIZATIONS No Known Immunizations SOCIAL HISTORY Never Assessed REASON FOR VISIT PLAN OF CARE VITAL SIGNS MEDICATIONS No Known Medications RESULTS No Results PROCEDURES No Known procedures INSTRUCTIONS MEDICATIONS ADMINISTERED No Known Medications MEDICAL (GENERAL) HISTORY Type Description Date Surgical History Appendectomy Hospitalization History No Hospitalization history informati on
--- OUTSIDE RECORDS SUMMARY | 2019-07-21 20:56 | XMS REPORT ---
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 340598744 ALLERGIES No Information ENCOUNTERS Encounter Location Date Diagnosis [address] [address] Oct, Other headache syndrome G44.[address] [address] September, Eustachian tube dysfunction, bilateral H 69.[address] [address] Aug, Breast lump on right side at 7 o'clock p osition N63 and Eustachian tube dysfunction, bilateral H69.[address] [address] Jul, Routine health maintenance Z00.[address] [address] Jul, Routine health maintenance Z00.00 ; Fami ly history of diabetes mellitus Z83.3 ; Family history of hypertension Z82.49 ; Pain in right shoulder M25.511 ; Pain in left shoulder M25.512 ; Allergic rhinitis J30.9 and Tinea versicolor B36.0 [place] [address] [address] Nov, Otitis media 382.9 ; Ear pain, left 388. 70 and Vertigo 780.4 [facility] [address] [id number] [place] [address] 10 Oct, 2014 Sinusitis 473.9 [facility] [address] [id number] [place] [address] 2014 [facility] [address] [id number] [place] [address] Aug, [facility] [address] [id number] [place] [address] Aug, [facility] [address] [id number] [place] [address] Aug, [facility] [address] [id number] [place] [address] Aug, [facility] [address] [id number] [place] [address] 16 Aug, 2013 [facility] [address] [place] [id number] [place] [address] Aug, [facility] [address] [id number] [place] [address] May, [facility] [address] [place] [id number] [place] [address] May, [facility] [address] [id number] [place] [address] September, [facility] [address] [place] [id number] [place] [address] September, [facility] [address] [id number] [place] [address] September, [facility] [address] [id number] [place] [address] September, [facility] [address] [id number] [place] [address] Aug, [facility] [address] [id number] [place] [address] May, [facility] [address] [id number] [place] [address] 10 Oct, 2010 IMMUNIZATIONS No Known Immunizations SOCIAL HISTORY Never Assessed REASON FOR VISIT PLAN OF CARE VITAL SIGNS Height 63 in 2013-08-21 Weight 145.5 lbs 2013-08-21 Temperature 98.6 degrees Fahrenheit 2013-08-21 Heart Rate 78 bpm 2013-08-21 Respiratory Rate 18 2013-08-21 Blood pressure systolic 100 mmHg 2013-08-21 Blood pressure diastolic 70 mmHg 2013-08-21 MEDICATIONS No Known Medications RESULTS No Results PROCEDURES Procedure Date Ordered Result Body Site TRICHOMONAS VAGIN, DIR PROBE August 21, 2013 CHYLMD TRACH, DNA, AMP PROBE August 21, 2013 URINE TEST August 21, 2013 CULTURE, BACTERIA, OTHER August 21, 2013 INSTRUCTIONS MEDICATIONS ADMINISTERED No Known Medications MEDICAL (GENERAL) HISTORY Type Description Date Surgical History Appendectomy Hospitalization History No Hospitalization history informati on
== END 2019-07-20 17:38 | disposition home or self-care (01) ==
LOC: EDUNIT# 16:25 → ER 16:26
DX: G44.209 Tension-type headache, unspecified, not intractable (principal)
CPT/HCPCS: 80306; 81000; 84703; 99284

== ENCOUNTER 2020-02-26 23:51 | Emergency (ER) | payer OTHER ==
[~2020-02-26] VITALS: Ht 157 cm; Wt 64.8 kg
[2020-02-27 01:19] LABS: BILIRUBIN,URINE NEGATIVE (NEGATIVE); CLARITY,URINE CLEAR; COLOR,URINE YELLOW; GLUCOSE, URINE (UA) NEGATIVE (NEGATIVE); KETONES,URINE NEGATIVE (NEGATIVE); LEUKOCYTE ESTERASE ,URINE TRACE (NEGATIVE); NITRITE,URINE NEGATIVE (NEGATIVE); PROTEIN,URINE NEGATIVE (NEGATIVE)
[2020-02-27 01:35] LABS: BACTERIA,URINE TRACE /HPF; RBC,URINE 0-2 /HPF; WBC,URINE 0-2 /HPF
[2020-02-27] MEDS ORDERED: RX-NITROFURANTOIN 100 MG (MACROBID) CAP PPK#2 PO STA (01:50)
[2020-02-27] MEDS ORDERED: NITR-65 PO (01:50)
--- NOTE | 2020-02-27 01:50 | ED Abdominal Pain ---
General Chief Complaint: Female Reproductive Stated Complaint: PELVIC PAIN,BACK PAIN,WEAK,15 WKS PREG Nursing Triage Note: 15 WEEKS , MONDAY BEGAN HAVING LOW ABDOMINAL AND BACK PAIN INTERMITTANTLY. PAIN COTINUES TODAY. NO OB DR YET. SEEN AT [facility] FOR ULTRASOUND. Sepsis Screen: No Definite Risk Source of Information: Patient History of Present Illness Date Seen by Provider: Feb 27, 2020 Time Seen by Provider: 01:05 Initial Comments PT ARRIVES VIA POV FROM HOME PT STATES SHE IS 15 WEEKS --LMP 11/13/19. HAS NOT HAD ANY CARE AT ALL. STATES FOR THE LAST 4 DAYS SHE HAS HAD LOWER ABDOMINAL PAIN AND BILATERAL FLANK PAIN NOTHING WORSENS OR IMPROVES PAIN HAS NOT TAKEN ANYTHING FOR PAIN AT ANY TIME SYMPTOMS NO DIFFERENT TONIGHT NO URINARY SYMPTOMS HAS MILD ONGOING NAUSEA, NO VOMITING. HAD NORMAL BM TODAY. HAS BEEN EATING AND DRINKING WELL NO FEVER NO COUGH OR RESPIRATORY SYMPTOMS NO VAGINAL BLEEDING OR DISCHARGE PT IS AB 0 ALL 'S WITHOUT COMPLICATIONS. YOUNGEST CHILD IS 11/BORN IN 2008 STATES SHE HAD AN APPOINTMENT TODAY WITH DR. WADE FOR FIRST OB APPOINTMENT. [facility] APPOINTMENT WAS AT 1:00 PM. STATES SHE DID NOT GO--STATES "I CALLED THE OFFICE AT 9:00 AND NO ONE ANSWERED" --STATES SHE CALLED HIS REGULAR OFFICE, HE DID NOT ATTEMPT TO CONTACT HIS OFFICE AT [facility], WHERE HE ALSO SEES OB PATIENTS. PCP: [facility] Allergies and Home Medications Allergies Coded Allergies: No Known Allergies (Verified Allergy, Unknown, 09/08/05) Home Medications Butalbital/Aspirin/Caffeine 1 Each Capsule, 1 EACH PO Q4H PRN for HEADACHE Prescribed by: ASHLEIGH BRANHAM on 11/09/17 173 Cephalexin 500 Mg Capsule, 500 MG PO TID Prescribed by: ASHLEIGH BRANHAM on 02/14/19 1903 Mupirocin 22 Gm Oint...g., 1 GM TP BID Prescribed by: ASHLEIGH BRANHAM on 11/09/17 173 Nitrofurantoin Monohyd/M-Cryst 100 Mg Capsule, 1 TAB PO BID Prescribed by: DEREK VALENCIA on 02/27/20 0150 Sulfamethoxazole/Trimethoprim 1 Each Tablet, 1 EACH PO BID Prescribed by: ASHLEIGH BRANHAM on 11/09/17 173 Patient Home Medication List Home Medication List Reviewed: Yes Review of Systems Review of Systems Constitutional: no symptoms reported Respiratory: No Symptoms Reported Cardiovascular: No Symptoms Reported Gastrointestinal: See HPI, Abdominal Pain; Denies Constipated, Denies Diarrhea; Nausea; Denies Vomiting Genitourinary: See HPI; Denies Burning, Denies Discharge, Denies Frequency; Flank Pain; Denies Hematuria, Denies Incontinence, Denies Pain, Denies Urgency Musculoskeletal: see HPI, back pain Skin: no symptoms reported Psychiatric/Neurological: No Symptoms Reported Endocrine: No Symptoms Reported Hematologic/Lymphatic: No Symptoms Reported Past Hwgijfc-Alfyxf-Vcpecv Hx Past Med/Social Hx: Reviewed and Corrections made Patient Social History Alcohol Use: Rarely Uses Recreational Drug Use: No Smoking Status: Never a Smoker 2nd Hand Smoke Exposure: No Recent Foreign Travel: No Contact w/Someone Who Travel: No Recent Infectious Disease Expo: No Recent Hopitalizations: No Physical Abuse: No Sexual Abuse: No Mistreated: No Fear: No Immunizations Up To Date Tetanus Booster (TDap): Unknown PED Vaccines UTD: Yes Seasonal Allergies Seasonal Allergies: Yes Past Medical History Surgeries: Yes Appendectomy Respiratory: No Cardiac: No Neurological: No : Yes Expected Date of Delivery: Aug 17, 2020 Last Menstrual Period: Nov 13, 2019 Hx : 4 Hx Para: 3 Hx Total # of Abortions (Sp): 0 Reproductive Disorders: No Female Reproductive Disorders: Denies Genitourinary: No Gastrointestinal: No Musculoskeletal: No Endocrine: No HEENT: No Cancer: No Psychosocial: No Integumentary: No Blood Disorders: No Physical Exam Vital Signs Vital Signs - First Documented 02/27/20 00:40 Temp 36.3 Pulse 88 Resp 18 B/P (MAP) 127/89 (102) Pulse Ox 99 Capillary Refill : Less Than 3 Seconds Height/Weight/BMI Height: 5'1.00" Weight: 160lbs. oz. 72.374775nz; 26.00 BMI Method:Stated General Appearance: WD/WN, no apparent distress, other (WALKS UPRIGHT AND MOVES WITHOUT DIFFICULTY) Neck: normal inspection Respiratory: normal breath sounds, no respiratory distress, no accessory muscle use Cardiovascular: regular rate, rhythm, no murmur Gastrointestinal: normal bowel sounds, non tender, soft, no pulsatile mass, other (FUNDUS 3 FB'S BELOW UMBILICUS) Extremities: normal inspection, no pedal edema, normal capillary refill Back: normal inspection, no CVA tenderness Neurologic/Psychiatric: replenishment specialist II-XII nml as tested, no motor/sensory deficits, alert, normal mood/affect, oriented x 3 Skin: normal color, warm/dry; No rash Exam Comments NO TENDERNESS ANYWHERE Progress/Results/Core Measures Results/Orders Lab Results Laboratory Tests Test 02/27/20 00:47 Range/Units Urine Color YELLOW Urine Clarity CLEAR Urine pH 7.0 5-9 Urine Specific [place] <=1.005 1.016-1.022 Urine Protein NEGATIVE NEGATIVE Urine Glucose (UA) NEGATIVE NEGATIVE Urine Ketones NEGATIVE NEGATIVE Urine Nitrite NEGATIVE NEGATIVE Urine Bilirubin NEGATIVE NEGATIVE Urine Urobilinogen 0.2 < = 1.0 MG/DL Urine Leukocyte Esterase TRACE H NEGATIVE Urine RBC (Auto) NEGATIVE NEGATIVE Urine RBC 0-2 /HPF Urine WBC 0-2 /HPF Urine Squamous Epithelial Cells 2-5 /HPF Urine Crystals NONE /LPF Urine Bacteria TRACE /HPF Urine Casts NONE /LPF Urine Mucus NEGATIVE /LPF Urine Culture Indicated NO My Orders Orders - DEREK VALENCIA DO Heart Tones (02/27/20 01:06) Ua Culture If Indicated (02/27/20 01:06) Urine Culture (02/27/20 01:47) Rx-Nitrofurantoin [place] (Rx-Macrobid) (02/27/20 01:50) Vital Signs/I&O 02/27/20 02/27/20 00:40 01:57 Temp 36.3 Pulse 88 81 Resp 18 20 B/P (MAP) 127/89 (102) 108/70 (102) Pulse Ox 99 98 Blood Pressure Mean: 102 Progress Progress Note : Progress Note FHR 150 Departure Impression Primary Impression: UTI (urinary tract infection) in in second trimester Disposition: 01 HOME, SELF-CARE Condition: Stable Departure-Patient Inst. Referrals: ELLA WADE MD [facility] [place] Patient Instructions: Urinary Tract Infections in Add. Discharge Instructions: TYLENOL NEEDED FOR PAIN LOTS OF CLEAR LIQUIDS FOLLOW UP WITH DR WADE OR [facility] THIS WEEK FOR THIS PROBLEM AND FOR ROUTINE OB CARE All discharge instructions reviewed with patient and/or family. Voiced understanding. Scripts Nitrofurantoin Monohyd/M-Cryst (Macrobid 100 mg Capsule) 100 Mg Capsule 1 TAB PO BID, #20 CAP Prov: DEREK VALENCIA DO 02/27/20 DEREK VALENCIA DO Feb 27, 2020:50
[2020-02-27 01:57] VITALS: BP 108/70
== END 2020-02-27 01:57 | disposition home or self-care (01) ==
LOC: EDUNIT# 23:51 → ER 23:55
DX: O23.42 Unspecified infection of urinary tract in pregnancy, second trimester (principal); Z3A.15 15 weeks gestation of pregnancy
CPT/HCPCS: 81000; 87077; 87088

== ENCOUNTER 2020-05-28 17:40 | Observation (INO) | payer OTHER ==
[~2020-05-28] VITALS: Ht 157.5 cm; Wt 75.7 kg
[~2020-05-28 17:40] MED LIST changes: +NITR-65 PO
--- NOTE | 2020-05-28 17:50 | NUR ---
MARLENY LAND presented to unit via ambulation from ED, accompanied by self, with c/o PELVIC AND BACK PAIN. MARLENY LAND weighed, gowned, voided, and to bed. EFHM and TOCO applied, VS taken. MARLENY LAND oriented to bed controls, call light, TV, heat, and A/C controls.
[2020-05-28 18:00] VITALS: BP 137/78
--- NOTE | 2020-05-28 18:05 | NUR ---
SVE per this RN. closed, thick, anterior.
[2020-05-28 18:12] VITALS: BP 137/78
--- NOTE | 2020-05-28 19:00 | NUR ---
DR BOLANOS CALLED WITH PATIENT C/O AND NURSE ASSESSMENT, CURRENT FHR TRACING. NEW ORDERS RECEIVED.
[2020-05-28 19:32] VITALS: BP 111/70
[2020-05-28] MEDS ORDERED: ACETAMINOPHEN 500 MG TAB (TYLENOL) ONE (19:33)
[2020-05-28] MEDS: D5 LR IV SOLUTION 1,000 ML IV SCH (19:42)
[2020-05-28 19:46] LABS: BASOPHILS # (AUTO) 0.1 10^3/uL (0.0-0.1); BASOPHILS % (AUTO) 1 % (0-10); EOSINOPHILS # (AUTO) 0.2 10^3/uL (0.0-0.3); EOSINOPHILS % (AUTO) 2 % (0-10); HEMATOCRIT 33 % (35-52); HEMOGLOBIN 11.1 g/dL (11.5-16.0); LYMPHOCYTES # (AUTO) 2.8 10^3/uL (1.0-4.0); LYMPHOCYTES % (AUTO) 25 % (12-44); MEAN CORPUSCULAR HEMOGLOBIN 30 pg (25-34); MEAN CORPUSCULAR HGB CONC 33 g/dL (32-36); MEAN CORPUSCULAR VOLUME 89 fL (80-99); MEAN PLATELET VOLUME 9.6 fL (9.0-12.2); MONOCYTES # (AUTO) 0.6 10^3/uL (0.0-1.0); MONOCYTES % (AUTO) 5 % (0-12); NEUTROPHILS # (AUTO) 7.4 10^3/uL (1.8-7.8); NEUTROPHILS % (AUTO) 67 % (42-75); PLATELET COUNT 265 10^3/uL (130-400)
[2020-05-28 20:02] LABS: ALANINE AMINOTRANSFERASE 11 U/L (0-55); ALBUMIN 3.1 GM/DL (3.2-4.5); ALKALINE PHOSPHATASE 84 U/L (40-136); BILIRUBIN,TOTAL 0.1 MG/DL (0.1-1.0); BUN/CREATININE RATIO 14; CALCIUM 8.9 MG/DL (8.5-10.1); CARBON DIOXIDE 20 MMOL/L (21-32); CHLORIDE 108 MMOL/L (98-107); CREATININE SERUM 0.59 MG/DL (0.60-1.30); GFR ESTIMATED > 60; GLUCOSE 90 MG/DL (70-105); POTASSIUM 3.7 MMOL/L (3.6-5.0); SODIUM 136 MMOL/L (135-145); TOTAL PROTEIN 6.9 GM/DL (6.4-8.2)
[2020-05-28 20:31] LABS: BILIRUBIN,URINE NEGATIVE (NEGATIVE); CLARITY,URINE CLEAR; COLOR,URINE YELLOW; GLUCOSE, URINE (UA) NEGATIVE (NEGATIVE); KETONES,URINE NEGATIVE (NEGATIVE); LEUKOCYTE ESTERASE ,URINE NEGATIVE (NEGATIVE); NITRITE,URINE NEGATIVE (NEGATIVE); PROTEIN,URINE NEGATIVE (NEGATIVE)
[2020-05-28 20:42] LABS: BACTERIA,URINE NEGATIVE /HPF
[2020-05-28] MEDS ORDERED: hydrOXYzine (VISTARIL/ATARAX) 25 MG capsule/tablet ONE (21:17)
[2020-05-28] MEDS ORDERED: hydrOXYzine (VISTARIL/ATARAX) 25 MG capsule/tablet PO ONE (21:30)
[2020-05-29] MEDS ORDERED: ACETAMINOPHEN 500 MG TAB (TYLENOL) PO ONE
[2020-05-29] MEDS: D5 LR IV SOLUTION 1,000 ML IV SCH (02:04)
[2020-05-29 08:00] VITALS: BP 112/67
--- NOTE | 2020-05-29 09:11 | Diagnostic Imaging Report ---
INDICATION: Constant abdominal pain during TECHNIQUE: The fetus was observed by the special police for purposes of a nonstress biophysical profile evaluation. FINDINGS: Intrauterine is currently in a transverse presentation, head to maternal left. The placenta is along the anterior aspect, approximately 2.3 cm from the internal os. cardiac activity at 143 beats per minute. Normal amount of amniotic fluid with an index at 12 cm. Biophysical Profile Scoring: breathin Body movement: 2 tone: 2 Amniotic fluid: 2 Total BPP Score: 8/8 IMPRESSION: 1. Normal biophysical profile score. Dictated by: Dictated on workstation # [id number]
--- NOTE | 2020-05-29 09:50 | NUR ---
dr freeman to bedside. reviewing poc for followup and results of BBP. patient acknowledged understanding.
--- NOTE | 2020-05-29 10:01 | Short Stay Summary ---
History of Present Illness History of Present Illness Reason for visit/HPI 44 yo @ 28.3 wga here for increasing abdominal pain. Patient is doing better this AM. Normal BPP at hospital. NST with variable decels in the 80s x 2 episodes. Denies any pain with urination. Feeling baby move. Date of Admission May 28, 2020 at 19:00 Date of Discharge 05/29/2020 Time Seen by Provider: 09:59 Attending Physician Andria Sabillon MD Admitting Physician Yanick Wade MD Consult Allergies and Home Medications Allergies Coded Allergies: NKANo Known Allergies (Verified Allergy, Unknown, 09/08/05) Home Medications Butalbital/Aspirin/Caffeine 1 Each Capsule, 1 EACH PO Q4H PRN for HEADACHE Prescribed by: ASHLEIGH BRANHAM on 11/09/17 173 Cephalexin 500 Mg Capsule, 500 MG PO TID Prescribed by: ASHLEIGH BRANHAM on 02/14/19 1903 Mupirocin 22 Gm Oint...g., 1 GM TP BID Prescribed by: ASHLEIGH BRANHAM on 11/09/17 173 Nitrofurantoin Monohyd/M-Cryst 100 Mg Capsule, 1 TAB PO BID Prescribed by: DEREK VALENCIA on 02/27/20 0150 Sulfamethoxazole/Trimethoprim 1 Each Tablet, 1 EACH PO BID Prescribed by: ASHLEIGH BRANHAM on 11/09/171730 Patient Home Medication List Home Medication List Reviewed: Yes Past Vaeszrx-Hrgfvw-Yxpogl Hx Patient Social History Smoking Status: Never a Smoker 2nd Hand Smoke Exposure: No Recent Hopitalizations: No Immunizations Up To Date Tetanus Booster (TDap): Unknown Pediatric: Yes Seasonal Allergies Seasonal Allergies: Yes Surgeries Yes Appendectomy Respiratory No Cardiovascular No Neurological No Reproductive System Expected Date of Delivery: Aug 18, 2020 Hx : 4 Hx Para: 3 Hx Total # of Abortions (Spona: 0 Hx Reproductive Disorders: No Female Reproductive Disorders: Denies Genitourinary No Gastrointestinal No Musculoskeletal No Endocrine History of Endocrine Disorders: No HEENT History of HEENT Disorders: No Cancer No Psychosocial History of Psychiatric Problem: No Integumentary History of Skin or Integumenta: No Blood Transfusions History of Blood Disorders: No Review of Systems Constitutional: no symptoms reported; No fever, No weakness EENTM: no symptoms reported Respiratory: no symptoms reported; No cough, No dyspnea on exertion, No short of breath Cardiovascular: no symptoms reported; No chest pain, No edema, No palpitations Gastrointestinal: abdominal pain; No nausea, No vomiting Genitourinary: no symptoms reported; No dysuria, No frequency, No hematuria : No Musculoskeletal: no symptoms reported Skin: no symptoms reported Psychiatric/Neurological: No Symptoms Reported All Other Systems Reviewed Negative Unless Noted: Yes Physical Exam Vital Signs Vital Signs - First Documented 05/28/20 18:00 Temp 36.1 Pulse 83 Resp 18 B/P (MAP) 137/78 (97) Pulse Ox 98 O2 Delivery Room Air Capillary Refill : Less Than 3 Seconds Height, Weight, BMI Height: 5'1.00" Weight: 160lbs. oz. [id number]; 30.51 BMI Method:Stated General Appearance: No Apparent Distress, WD/WN Respiratory: Chest Non Tender, Lungs Clear, Normal Breath Sounds, No Accessory Muscle Use, No Respiratory Distress Cardiovascular: Regular Rate, Rhythm, No Edema, Normal Peripheral Pulses Gastrointestinal: Normal Bowel Sounds, Non Tender, Soft Back: No CVA Tenderness Extremity: Non Tender, No Calf Tenderness, No Pedal Edema Neurologic/Psychiatric: Alert, Oriented x3, Normal Mood/Affect, apprentice technician II-XII Norm as Tested Skin: Normal Color, Warm/Dry Lymphatic: No Adenopathy Short Stay Diagnosis Discharge Diagnosis-Short Stay Admission Diagnosis: Third Trimester 28 week gestation Abdominal pain in Final Discharge Diagnosis: See Above Conclusion Labs Laboratory Tests 05/28/20 19:30: White Blood Count 11.0, Red Blood Count 3.75L, Hemoglobin 11.1L, Hematocrit 33L, Mean Corpuscular Volume 89, Mean Corpuscular Hemoglobin 30, Mean Corpuscular Hemoglobin Concent 33, Red Cell Distribution Width 12.7, Platelet Count 265, Mean Platelet Volume 9.6, Immature Granulocyte % (Auto) 0, Neutrophils (%) (Auto) 67, Lymphocytes (%) (Auto) 25, Monocytes (%) (Auto) 5, Eosinophils (%) (Auto) 2, Basophils (%) (Auto) 1, Neutrophils # (Auto) 7.4, Lymphocytes # (Auto) 2.8, Monocytes # (Auto) 0.6, Eosinophils # (Auto) 0.2, Basophils # (Auto) 0.1, Immature Granulocyte # (Auto) 0.0, Sodium Level 136, Potassium Level 3.7, Chloride Level 108H, Carbon Dioxide Level 20L, Anion Gap 8, Blood Urea Nitrogen 8, Creatinine 0.59L, Estimat Glomerular Filtration Rate > 60, BUN/Creatinine Ratio 14, Glucose Level 90, Calcium Level 8.9, Corrected Calcium 9.6, Total Bilirubin 0.1, Aspartate Amino Transf (AST/SGOT) 13, Alanine Aminotransferase (ALT/SGPT) 11, Alkaline Phosphatase 84, Total Protein 6.9, Albumin 3.1L 05/28/20 20:20: Urine Color YELLOW, Urine Clarity CLEAR, Urine pH 7.0, Urine Specific [place] <=1.005, Urine Protein NEGATIVE, Urine Glucose (UA) NEGATIVE, Urine Ketones NEGATIVE, Urine Nitrite NEGATIVE, Urine Bilirubin NEGATIVE, Urine Urobilinogen 0.2, Urine Leukocyte Esterase NEGATIVE, Urine RBC (Auto) NEGATIVE, Urine RBC NONE, Urine WBC NONE, Urine Squamous Epithelial Cells NONE, Urine Crystals NONE, Urine Bacteria NEGATIVE, Urine Casts NONE, Urine Mucus SMALLH, Urine Culture Indicated NO Conclusion/Plan 44 yo @ 28.3 wga here for abdominal pain in Plan - Normal BPP - Occassional variable decelerations: will set up with Dr Wade and BPP next week - normal labs and urine Copy Copies To 1: YANICK WADE MD, HOLLY R MD May 29, 2020 10:01
--- NOTE | 2020-05-29 10:03 | Discharge Summary ---
Discharge [facility] Reconcile Patient Problems Problems Reviewed?: Yes Discharge Medications New, Converted or Re-Newed RX: Other (No new meds) Discontinued Medications: Butalbital/Aspirin/Caffeine (Fiorinal 50-325-40 mg Capsule) 1 Each Capsule 1 EACH PO Q4H PRN for HEADACHE, #5 CAP Cephalexin (Keflex) 500 Mg Capsule 500 MG PO TID, #15 CAP Mupirocin (Mupirocin) 22 Gm Oint...g. 1 GM TP BID, #1 TUBE Nitrofurantoin Monohyd/M-Cryst (Macrobid 100 mg Capsule) 100 Mg Capsule 1 TAB PO BID, #20 CAP Sulfamethoxazole/Trimethoprim (Bactrim Ds Tablet) 1 Each Tablet 1 EACH PO BID, #14 TAB Patient Instructions Goal/Follow Up Appt: F.u with Dr Solo in office next week Activity & Diet Discharge Diet: No Restrictions Activity as Tolerated: Yes ALVIN BOLANOS MD May 29, 2020 10:03
--- NOTE | 2020-05-29 10:20 | NUR ---
out of WS via ambulation with s/o to home self care. no s/s of distress at this time with d/c papers in hand.
== END 2020-05-29 10:20 | disposition home or self-care (01) ==
LOC: WSo 17:40 → LDRP 17:41 → WSo 20:10
PROVIDERS: ADMIT Family Medicine; ATTEND Family Medicine
DX: O99.891 Other specified diseases and conditions complicating pregnancy (principal); Z3A.28 28 weeks gestation of pregnancy
CPT/HCPCS: 76819; 80053; 81000; 85025; 96360; 96361 ×2; G0378; G0379; 36415; 99211

== ENCOUNTER 2020-06-27 20:15 | Emergency (ER) | payer OTHER ==
[~2020-06-27] VITALS: Ht 157 cm; Wt 74.3 kg
[2020-06-27 20:30] VITALS: BP 132/88
[2020-06-27] MEDS ORDERED: D5 NS 1000 ML IV SOLUTION 1,000 ML IV ONE (20:45)
[2020-06-27] MEDS ORDERED: ACETAMINOPHEN 325 MG TABLET PO STA (20:51)
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
[2020-06-27 20:54] LABS: BILIRUBIN,URINE NEGATIVE (NEGATIVE); CLARITY,URINE CLEAR; COLOR,URINE YELLOW; GLUCOSE, URINE (UA) NEGATIVE (NEGATIVE); KETONES,URINE NEGATIVE (NEGATIVE); LEUKOCYTE ESTERASE ,URINE TRACE (NEGATIVE); NITRITE,URINE NEGATIVE (NEGATIVE); PROTEIN,URINE NEGATIVE (NEGATIVE)
[2020-06-27 21:02] LABS: AMORPHOUS SEDIMENT,UR RARE AMOR URATES /LPF; BACTERIA,URINE NEGATIVE /HPF
== END 2020-06-27 21:04 | disposition other institution (70) ==
LOC: EDUNIT# 20:15 → ER 20:17
DX: O26.893 Other specified pregnancy related conditions, third trimester (principal); M54.5 Low back pain; Z3A.37 37 weeks gestation of pregnancy
CPT/HCPCS: 81000

== ENCOUNTER 2020-06-27 21:30 | Outpatient (CLI) | payer OTHER ==
[~2020-06-27] VITALS: Ht 157 cm; Wt 74.3 kg
[2020-06-27 21:20] VITALS: BP 135/82
[2020-06-27 21:45] VITALS: BP 135/82
[2020-06-27] MEDS ORDERED: CALCIUM CARBONATE 500 MG (TUMS) TAB.CHEW ONE (21:46)
[2020-06-27] MEDS ORDERED: CALCIUM CARBONATE 500 MG (TUMS) TAB.CHEW PO ONE (22:00)
--- NOTE | 2020-06-29 08:46 | Physician Query-Final Dx ---
Clinic Account Progress/Dx Physician Query: Please give diagnosis Please include # weeks gestation Date of Service Jun 27, 2020 at 21:30 MARISOL SALGADO Jun 29, 2020 08:46
== END 2020-06-27 22:10 | disposition home or self-care (01) ==
LOC: WSo 21:30 → LDRP 21:31 → WSo 22:10
PROVIDERS: ATTEND Family Medicine
DX: O9A.219 Injury, poisoning and certain other consequences of external causes complicating pregnancy, unspecified trimester (principal); V89.2XXA Person injured in unspecified motor-vehicle accident, traffic, initial encounter; Z3A.00 Weeks of gestation of pregnancy not specified

== ENCOUNTER 2020-07-12 04:00 | Outpatient (CLI) | payer OTHER ==
[~2020-07-12] VITALS: Ht 160 cm; Wt 79.0 kg
[2020-07-12 04:15] VITALS: BP 118/81
[2020-07-12] MEDS ORDERED: PREN-142 PO (04:24)
[2020-07-12 04:25] LABS: BILIRUBIN,URINE NEGATIVE (NEGATIVE); CLARITY,URINE CLEAR; COLOR,URINE YELLOW; GLUCOSE, URINE (UA) NEGATIVE (NEGATIVE); KETONES,URINE NEGATIVE (NEGATIVE); LEUKOCYTE ESTERASE ,URINE TRACE (NEGATIVE); NITRITE,URINE NEGATIVE (NEGATIVE); PH,URINE 6.5 (5-9); PROTEIN,URINE 1+ (NEGATIVE)
[2020-07-12 04:32] LABS: BACTERIA,URINE TRACE /HPF; RBC,URINE RARE /HPF; SQUAMOUS EPITHELIAL CELL,UR 25-50 /HPF; WBC,URINE RARE /HPF
[2020-07-12] MEDS ORDERED: ACETAMINOPHEN 500 MG TAB (TYLENOL) PO ONE (04:45)
--- NOTE | 2020-07-13 08:02 | Physician Query-Final Dx ---
Clinic Account Progress/Dx Physician Query: Please give diagnosis Please include # weeks gestation Date of Service Jul 12, 2020 at 04:00 MARISOL SALGADO Jul 13, 2020 08:02
== END 2020-07-12 05:39 | disposition home or self-care (01) ==
LOC: LDRP 04:00 → WSo 04:00
PROVIDERS: ATTEND Family Medicine
DX: O26.893 Other specified pregnancy related conditions, third trimester (principal); R10.2 Pelvic and perineal pain; Z3A.34 34 weeks gestation of pregnancy
CPT/HCPCS: 81000; 99213

== ENCOUNTER 2020-08-10 01:35 | Outpatient (CLI) | payer OTHER ==
[~2020-08-10] VITALS: Ht 157.5 cm; Wt 82.3 kg
[~2020-08-10 01:35] MED LIST changes: +PREN-142 PO
[2020-08-10 02:04] VITALS: BP 133/99
[2020-08-10 02:06] VITALS: BP 133/99
[2020-08-10 03:38] VITALS: BP 121/84
--- NOTE | 2020-08-11 09:21 | Physician Query-Final Dx ---
MARISOL SALGADO 08/11/20 0921: Clinic Account Progress/Dx Physician Query: Please give diagnosis Please include # of weeks gestation Date of Service Aug 10, 2020 at 01:35 ISACC HECTOR DO 08/12/20 1204: Clinic Account Progress/Dx DIAGNOSIS: Diagnosis 38wk GA contractions, not in active labor MARISOL SALGADO Aug 11, 2020 09:21 ISACC HECTOR DO Aug 12, 2020 12:04
== END 2020-08-10 03:32 | disposition home or self-care (01) ==
LOC: WSo 01:35 → LDRP 01:36 → WSo 03:32
PROVIDERS: ATTEND Family Medicine
DX: O26.899 Other specified pregnancy related conditions, unspecified trimester (principal); Z3A.00 Weeks of gestation of pregnancy not specified
CPT/HCPCS: 99214

== ENCOUNTER 2020-08-10 16:08 | Inpatient (IN) | payer OTHER ==
[~2020-08-10] VITALS: Ht 157.5 cm; Wt 82.8 kg
[2020-08-10 16:30] VITALS: BP 132/95
[2020-08-10 16:58] LABS: BILIRUBIN,URINE NEGATIVE (NEGATIVE); CLARITY,URINE CLEAR; COLOR,URINE YELLOW; GLUCOSE, URINE (UA) NEGATIVE (NEGATIVE); KETONES,URINE NEGATIVE (NEGATIVE); LEUKOCYTE ESTERASE ,URINE TRACE (NEGATIVE); NITRITE,URINE NEGATIVE (NEGATIVE); PROTEIN,URINE 2+ (NEGATIVE)
[2020-08-10 17:30] VITALS: BP 137/86
[2020-08-10] MEDS ORDERED: D5 LR IV SOLUTION 1,000 ML IV ONE (17:50)
[2020-08-10 18:00] VITALS: BP 149/84
[2020-08-10] MEDS ORDERED: D5 LR IV SOLUTION 1,000 ML IV SCH (18:00)
[2020-08-10 18:05] LABS: AMORPHOUS SEDIMENT,UR MOD AMOR URATES /LPF; BACTERIA,URINE TRACE /HPF
[2020-08-10 20:03] VITALS: BP 151/79
[2020-08-10 20:33] VITALS: BP 134/82
[2020-08-10 20:49] LABS: ALBUMIN 2.9 GM/DL (3.2-4.5); CHLORIDE 109 MMOL/L (98-107); POTASSIUM 3.6 MMOL/L (3.6-5.0); SODIUM 136 MMOL/L (135-145)
[2020-08-10 20:51] LABS: CALCIUM 8.5 MG/DL (8.5-10.1)
[2020-08-10 20:52] LABS: GLUCOSE 111 MG/DL (70-105); TOTAL PROTEIN 6.7 GM/DL (6.4-8.2)
[2020-08-10 20:53] LABS: CARBON DIOXIDE 16 MMOL/L (21-32)
[2020-08-10 20:54] LABS: BILIRUBIN,TOTAL 0.2 MG/DL (0.1-1.0)
[2020-08-10 20:55] LABS: ALKALINE PHOSPHATASE 127 U/L (40-136); CREATININE SERUM 0.59 MG/DL (0.60-1.30); GFR ESTIMATED > 60
[2020-08-10 20:57] LABS: BUN/CREATININE RATIO 10
[2020-08-10 20:58] LABS: ALANINE AMINOTRANSFERASE 12 U/L (0-55)
[2020-08-10 20:59] LABS: URIC ACID 6.7 MG/DL (2.6-7.2)
[2020-08-10 21:53] VITALS: BP 141/93
[2020-08-11] VITALS (17 sets, daily range): BP systolic 73–173; BP diastolic 49–94
[2020-08-11] MEDS ORDERED: FAMOTIDINE 20MG/2ML IV (PEPCID) ONE (00:07)
[2020-08-11] MEDS ORDERED: CITRIC ACID/SOB CIT (BICITRA) 30 ML UDC ONE (00:07)
[2020-08-11] MEDS ORDERED: METOCLOPRAMIDE INJ 10 MG/2 ML (REGLAN) ONE (00:07)
[2020-08-11] MEDS ORDERED: CATHETER FLUSH 10 ML SYR IV PRN (00:30)
[2020-08-11] MEDS ORDERED: FAMOTIDINE 20MG/2ML IV (PEPCID) IV ONE (00:30)
[2020-08-11] MEDS ORDERED: LACTATED RINGERS 1,000 ML IV PRN ×6 (00:30→01:15)
[2020-08-11] MEDS ORDERED: METOCLOPRAMIDE INJ 10 MG/2 ML (REGLAN) IV ONE ×3 (00:30→01:15)
[2020-08-11] MEDS ORDERED: CITRIC ACID/SOB CIT (BICITRA) 30 ML UDC PO ONE ×3 (00:30→01:15)
--- NOTE | 2020-08-11 00:46 | History & Physical-OB ---
OB - Chief Complaint & HPI Date/Time Date of Admission: Date of Admission: Date seen by a Provider: Aug 11, 2020 Time Seen by a Provider: 00:40 Chief Complaint/History OB-Reason for Admission/Chief: Rupture of Membranes Hx : 4 Hx Para: 3 Expected Date of Delivery: Aug 22, 2020 Gestational Age in Weeks: 38 Gestational Age in Days: 2 Indication for : malpresentation (Transverse lie) Allergies and Home Medications Allergies Coded Allergies: NKANo Known Allergies (Verified Allergy, Unknown, 09/08/05) Home Medications Vit No.124/Iron/FA 1 Each Tablet, 1 EACH PO DAILY, (Reported) Patient Home Medication List Home Medication List Reviewed: Yes OB - History Hx of Present Care: Yes Ultrasounds: Normal mid trimester US Obstetrical Complications: None Medical Complications: None Obstetrical History Hx : 4 Hx Para: 3 Patient Past Medical History no chronic medical problems Social History/Family History Alcohol Use: Denies Use Recreational Drug Use: No 2nd Hand Smoke Exposure: No Immunizations Tetanus Booster (TDap): Unknown Date of Influenza Vaccine: Jul 10, 2020 OB - Admission Exam Physical Exam Vitals: Vital Signs 08/10/20 08/10/20 18:00 19:00 Pulse 76 Resp 18 B/P (MAP) 149/84 (105) O2 Delivery Room Air HEENT: Moist Membranes Heart: Rhythm Normal Lungs: Clear Abdomen: Gravid Cervical Dilatation: 4cm Station: Other (non vertex presentation) Amniotic Fluid: Clear Heart Rate: 140's Accelerations: Accelerations Present Short Term Variability: Present Non Destructive Testing Scientist Variability: Average (6-25) Contractions on Admission: 6-10 Minutes Apart Intensity: Mild Labs Laboratory Tests Test 08/10/20 16:20 08/10/20 20:30 Range/Units Urine Color YELLOW Urine Clarity CLEAR Urine pH 6.0 5-9 Urine Specific [place] 1.010 L 1.016-1.022 Urine Protein 149 H 6-12 MG/DL Urine Glucose (UA) NEGATIVE NEGATIVE Urine Ketones NEGATIVE NEGATIVE Urine Nitrite NEGATIVE NEGATIVE Urine Bilirubin NEGATIVE NEGATIVE Urine Urobilinogen 0.2 < = 1.0 MG/DL Urine Leukocyte Esterase TRACE H NEGATIVE Urine RBC (Auto) 2+ H NEGATIVE Urine RBC 2-5 H /HPF Urine WBC 2-5 /HPF Urine Squamous Epithelial Cells 10-25 H /HPF Urine Crystals PRESENT H /LPF Urine Amorphous Sediment MOD MARJORIE URATES H /LPF Urine Bacteria TRACE /HPF Urine Casts NONE /LPF Urine Mucus NEGATIVE /LPF Urine Culture Indicated NO Urine Creatinine 39 30-125 MG/DL Urine Protein/Creatinine Ratio 3.82 Sodium Level 136 135-145 MMOL/L Potassium Level 3.6 3.6-5.0 MMOL/L Chloride Level 109 H 98-107 MMOL/L Carbon Dioxide Level 16 L 21-32 MMOL/L Anion Gap 11 5-14 MMOL/L Blood Urea Nitrogen 6 L 7-18 MG/DL Creatinine 0.59 L 0.60-1.30 MG/DL Estimat Glomerular Filtration Rate > 60 BUN/Creatinine Ratio 10 Glucose Level 111 H 70-105 MG/DL Uric Acid 6.7 2.6-7.2 MG/DL Calcium Level 8.5 8.5-10.1 MG/DL Corrected Calcium 9.4 8.5-10.1 MG/DL Total Bilirubin 0.2 0.1-1.0 MG/DL Aspartate Amino Transf (AST/SGOT) 18 5-34 U/L Alanine Aminotransferase (ALT/SGPT) 12 0-55 U/L Alkaline Phosphatase 127 40-136 U/L Lactate Dehydrogenase 181 125-220 U/L Total Protein 6.7 6.4-8.2 GM/DL Albumin 2.9 L 3.2-4.5 GM/DL OB - Assessment/Plan/Diagnosis Assessment Assessment: rupture of membranes (at 38w3 days gestation) Admission Dx 2. malpresentation--transverse Admission Status: Inpatient Order (span 2 midnights) Reason for Inpatient Admission: primary Plan Plan: Section Other Plan -Dr Pinto notified of SROM with transverse presentation. -surgery crew notified and plan on primary CS ELLA WADE MD Aug 11, 2020 00:46
[2020-08-11 00:47] LABS: BASOPHILS # (AUTO) 0.1 10^3/uL (0.0-0.1); BASOPHILS % (AUTO) 1 % (0-10); EOSINOPHILS # (AUTO) 0.1 10^3/uL (0.0-0.3); EOSINOPHILS % (AUTO) 1 % (0-10); HEMATOCRIT 44 % (35-52); HEMOGLOBIN 14.5 g/dL (11.5-16.0); LYMPHOCYTES # (AUTO) 3.2 10^3/uL (1.0-4.0); LYMPHOCYTES % (AUTO) 32 % (12-44); MEAN CORPUSCULAR HEMOGLOBIN 30 pg (25-34); MEAN CORPUSCULAR HGB CONC 33 g/dL (32-36); MEAN CORPUSCULAR VOLUME 91 fL (80-99); MEAN PLATELET VOLUME 10.3 fL (9.0-12.2); MONOCYTES # (AUTO) 0.5 10^3/uL (0.0-1.0); MONOCYTES % (AUTO) 5 % (0-12); NEUTROPHILS # (AUTO) 6.4 10^3/uL (1.8-7.8); NEUTROPHILS % (AUTO) 62 % (42-75); PLATELET COUNT 255 10^3/uL (130-400); WHITE BLOOD COUNT 10.2 10^3/uL (4.3-11.0)
--- NOTE | 2020-08-11 00:59 | Consultation ---
History of Present Illness History of Present Illness Patient Consulted On(duke/time) 08/11/20 00:55 Date Seen by Provider: Aug 11, 2020 Time Seen by Provider: 00:55 Reason for Visit: elevated bloop pressures, ROM in transverse presentation History of Present Illness Consulted by Dr. Solo due to malpresentation (transverse). 44 year old at 38 + weeks gestation presented for contractions. On admission she was noted to be not inlabor but had proteinuria and mild elevation in blood pressure. PC ration was 3.82. she was admitted for observation and plan was to obtain BPP in the morning and then determine delivery She had SROM and was found to be in transverse presentation and actively rome. Cervical exam was 4 cm. I was consulted for delivery She is a 44 year old advanced maternal age female with care with Dr. Solo. otherwise uncomplicated See Dr. solo's note for labs and pertinent information. Allergies and Home Medications Allergies Coded Allergies: NKANo Known Allergies (Verified Allergy, Unknown, 09/08/05) Home Medications Vit No.124/Iron/FA 1 Each Tablet, 1 EACH PO DAILY, (Reported) Patient Home Medication List Home Medication List Reviewed: Yes Past Tvzvven-Rmweyb-Popzvc Hx Patient Social History Alcohol Use: Denies Use Smoking Status: Never a Smoker 2nd Hand Smoke Exposure: No Recent Hopitalizations: No Physical Abuse: No Sexual Abuse: No Mistreated: No Fear: No Immunizations Up To Date Tetanus Booster (TDap): Unknown PED Vaccines UTD: Yes Date of Influenza Vaccine: Jul 10, 2020 Seasonal Allergies Seasonal Allergies: Yes Past Medical History Surgeries: Yes Appendectomy Respiratory: No Cardiac: No Neurological: No Expected Date of Delivery: Aug 22, 2020 Hx : 4 Hx Para: 3 Reproductive Disorders: No Female Reproductive Disorders: Denies Genitourinary: No Gastrointestinal: No Musculoskeletal: No Endocrine: No HEENT: No Cancer: No Psychosocial: No Integumentary: No Blood Disorders: No Family Medical History Reviewed Nursing Family Hx Physical Exam-General Problems Physical Exam Vital Signs Vital Signs - First Documented 08/10/20 17:30 B/P (MAP) 137/86 (103) Capillary Refill : Less Than 3 Seconds General Appearance: no apparent distress Respiratory: chest non-tender, lungs clear Cardiovascular: regular rate, rhythm; No no edema (1+) Gastrointestinal: normal bowel sounds Reflexes: 2+ Knee (R), 2+ Knee (L), 2+ Ankle (R), 2+ Ankle (L) Assessment/Plan Assessment/Plan Admission Diagnosis/Plan 1. advanced maternal age 2. 38 week gestation 3. Elevated blood pressures without severe blood pressures, but proteinuria (PC 3.82) 4. SROM 5. malpresentation in labor Plan - primary section Risks and benefits explained to patient. Consents have been signed. Will use prophylactic antibiotics and SCDs Ancef and Zithromax (due to ROM) OTTO VALADEZ DO Aug 11, 2020 00:59
[2020-08-11] MEDS ORDERED: AZITHROMYCIN INJECTION 500 MG/5 ML VIAL ONE (01:01)
[2020-08-11] MEDS ORDERED: ceFAZolin 2 GM IV Premixed 50 ML ONE (01:02)
[2020-08-11] MEDS ORDERED: fentaNYL INJ 100 MCG/2 ML AMP ONE (01:05)
[2020-08-11] MEDS ORDERED: NS IV 500 ML 500 ML ONE (01:05)
[2020-08-11] MEDS ORDERED: KETAMINE/NaCl 50 MG/5 ML SYRINGE (ED ONLY) ONE (01:07)
[2020-08-11] MEDS ORDERED: FAMOTIDINE 20MG/2ML IV (PEPCID) IVP ONE (01:15)
[2020-08-11] MEDS ORDERED: ceFAZolin 2 GM IV Premixed 50 ML IV ONE ×2 (01:15)
[2020-08-11] MEDS ORDERED: AZITHROMYCIN INJECTION 500 MG in NS (IVPB) 250 ML IV ONE ×4 (01:15)
[2020-08-11] MEDS: KETOROLAC 30 MG/ML VIAL IV SCH ×4 (01:50→20:28)
[2020-08-11] MEDS ORDERED: KETOROLAC 30 MG/ML VIAL ONE (01:53)
[2020-08-11] MEDS ORDERED: OXYTOCIN PRE-MIX DRIP 1,000 ML IV ONE (01:54)
--- NOTE | 2020-08-11 02:14 | Cesarean Section Operative ---
Procedure Procedure Note Pre-operative Diagnosis: Olivia Jacques is a 44 /Para 4 / 3, Gestational Age 38 3/7 weeks, malpresentation, advanced maternal age, labor, proteinuria/preeclampsia Post-operative Diagnosis: same Procedure: primary low transverse section Physician: OTTO VALADEZ Neon Glass Blower: Beto Solo MD Estimated blood loss: 400 mL Disposition: stable Findings: Viable female infant, Apgars 5/9, weight 6#12 ounces, intact placenta, 3vc, normal appearing uterus, tubes, and ovaries. Indications:Olivia Jacques is a 44 /Para 4 / 3,Gestational Age 38 3/7 weeks, malpresentation, advanced maternal age, labor, proteinuria/preeclampsia Procedure Details: The patient was seen in pre-op and the procedure was discussed with the patient in full, including the risks, benefits, and alternatives. All questions were answered. The patient was taken to the operating room and a time out was performed, verifying patient and procedure. After spinal anesthesia was placed by our anesthesia colleagues, the patient was placed in the dorsal supine with leftward tilt for uterine displacement.~ Her abdomen was then prepped and draped in the typical sterile fashion. A Pfannenstiel skin incision was made using a scalpel and carried down through the underlying fascia. The fascia was incised in the midline and tented up using Blake clamps. On both the inferior and superior fascia side the rectus muscle was dissected off bluntly and sharply using Page scissors. The peritoneum was identified and entered bluntly in the midline. This was then stretched laterally using manual strength. After entering the abdominal cavity and confirming lack of intraperitoneal adhesions, an extra large Walter retractor was placed and the lower uterine segment was visualized. A scalpel was utilized to make a low transverse uterine incision.The 's feet were at the incieions (prese ntation was variable) was grasped and brought to the level of the incision. Baby was delivered in the breech presentation. Baby delivered up to the level of the scapula and then rotated to deliver the arms flexing across the chest. The head wea then delivered with the [place], Smellie- Veit maneuver by flexing the head forward. Mouth and nares were suctioned with bulb suction. After the umbilical cord was clamped and cut, the was handed off to the Dr. Solo. A sample of cord blood was then obtained. The placenta was delivered intact via uterine massage. The uterus was cleared of all clots and debris. The uterine incision was closed using 0PDS l in a running locked fashion. A second imbricated layer was placed using 0 Vicryl in a running fashion as well. The bilateral tubes and ovaries appeared normal. The abdominal gutters were cleared of all clots and debris. A final check of the uterine incision showed it to be hemostatic. The peritoneum was closed using 3-0 Vicryl in a running fashion. The fascia was closed with 0 Vicryl in a running fashion. The subcutaneous space was hemostatic, and irrigated. The subcutaneous space was closed with 0 Plain in several single interrupted stitches. The skin was then closed using 4-0 Monocryl in a running subcuticular fashion. The skin edges were reapproximated together and were hemostatic. A pressure dressing was applied. All sponge, lap and needle counts were correct at the end of the procedure per nursing. Vitals - Labs Vital Signs - I&O Vital Signs Date Time Temp Pulse Resp B/P (MAP) Pulse Ox O2 Delivery O2 Flow Rate FiO2 08/10/20 19:00 18 Room Air 08/10/20 18:30 18 Room Air 08/10/20 18:00 76 18 149/84 (105) Room Air 08/10/20 17:30 90 18 137/86 (103) Room Air 08/10/20 16:30 36.5 94 18 98 Room Air 08/10/20 16:30 36.5 94 18 98 Room Air I & O 08/11/20 07:00 Intake Total 50 ml Balance 50 ml Labs Laboratory Tests 08/10/20 16:20: Urine Color YELLOW, Urine Clarity CLEAR, Urine pH 6.0, Urine Specific [place] 1.010L, Urine Protein 149H, Urine Glucose (UA) NEGATIVE, Urine Ketones NEGATIVE, Urine Nitrite NEGATIVE, Urine Bilirubin NEGATIVE, Urine Urobilinogen 0.2, Urine Leukocyte Esterase TRACEH, Urine RBC (Auto) 2+H, Urine RBC 2-5H, Urine WBC 2-5, Urine Squamous Epithelial Cells 10-25H, Urine Crystals PRESENTH, Urine Amorphous Sediment MOD MARJORIE URATESH, Urine Bacteria TRACE, Urine Casts NONE, Urine Mucus NEGATIVE, Urine Culture Indicated NO, Urine Creatinine 39, Urine Protein/Creatinine Ratio 3.82 08/10/20 20:30: Sodium Level 136, Potassium Level 3.6, Chloride Level 109H, Carbon Dioxide Level 16L, Anion Gap 11, Blood Urea Nitrogen 6L, Creatinine 0.59L, Estimat Glomerular Filtration Rate > 60, BUN/Creatinine Ratio 10, Glucose Level 111H, Uric Acid 6.7, Calcium Level 8.5, Corrected Calcium 9.4, Total Bilirubin 0.2, Aspartate Amino Transf (AST/SGOT) 18, Alanine Aminotransferase (ALT/SGPT) 12, Alkaline Phosphatase 127, Lactate Dehydrogenase 181, Total Protein 6.7, Albumin 2.9L 08/11/20 00:38: White Blood Count 10.2, Red Blood Count 4.81, Hemoglobin 14.5, Hematocrit 44, Mean Corpuscular Volume 91, Mean Corpuscular Hemoglobin 30, Mean Corpuscular Hemoglobin Concent 33, Red Cell Distribution Width 14.1, Platelet Count 255, Mean Platelet Volume 10.3, Immature Granulocyte % (Auto) 0, Neutrophils (%) (Auto) 62, Lymphocytes (%) (Auto) 32, Monocytes (%) (Auto) 5, Eosinophils (%) (Auto) 1, Basophils (%) (Auto) 1, Neutrophils # (Auto) 6.4, Lymphocytes # (Auto) 3.2, Monocytes # (Auto) 0.5, Eosinophils # (Auto) 0.1, Basophils # (Auto) 0.1, Immature Granulocyte # (Auto) 0.0 OTTO VALADEZ DO Aug 11, 2020 02:14
[2020-08-11] MEDS ORDERED: morphine INJ 4 MG/ML 1 ML (VIAL/SYRINGE) IVP PRN (02:15)
[2020-08-11] MEDS ORDERED: TETANUS,DIPTH,PERTUSS P/F (BOOSTRIX) 0.5 ML VIAL IM SCH (02:15)
[2020-08-11] MEDS ORDERED: MEASLES,MUMPS,RUBELLA 1 EA INJ SC SCH (02:15)
[2020-08-11] MEDS ORDERED: OXYTOCIN PRE-MIX DRIP 500 ML IV SCH (02:15)
[2020-08-11] MEDS: ACETAMINOPHEN 500 MG TAB (TYLENOL) PO SCH ×3 (05:54→23:58)
[2020-08-11] MEDS ORDERED: CATHETER FLUSH 10 ML SYR IV SCH (06:00)
[2020-08-11 06:41] LABS: BASOPHILS # (AUTO) 0.1 10^3/uL (0.0-0.1); BASOPHILS % (AUTO) 0 % (0-10); EOSINOPHILS # (AUTO) 0.1 10^3/uL (0.0-0.3); EOSINOPHILS % (AUTO) 0 % (0-10); HEMATOCRIT 35 % (35-52); HEMOGLOBIN 11.9 g/dL (11.5-16.0); LYMPHOCYTES # (AUTO) 2.5 10^3/uL (1.0-4.0); LYMPHOCYTES % (AUTO) 17 % (12-44); MEAN CORPUSCULAR HEMOGLOBIN 31 pg (25-34); MEAN CORPUSCULAR HGB CONC 34 g/dL (32-36); MEAN CORPUSCULAR VOLUME 89 fL (80-99); MEAN PLATELET VOLUME 10.3 fL (9.0-12.2); MONOCYTES # (AUTO) 0.7 10^3/uL (0.0-1.0); MONOCYTES % (AUTO) 5 % (0-12); NEUTROPHILS # (AUTO) 11.9 10^3/uL (1.8-7.8); NEUTROPHILS % (AUTO) 78 % (42-75); PLATELET COUNT 192 10^3/uL (130-400); WHITE BLOOD COUNT 15.3 10^3/uL (4.3-11.0)
[2020-08-11 06:54] LABS: ALBUMIN 2.5 GM/DL (3.2-4.5)
[2020-08-11 06:55] LABS: CHLORIDE 110 MMOL/L (98-107); POTASSIUM 3.9 MMOL/L (3.6-5.0); SODIUM 135 MMOL/L (135-145)
[2020-08-11 06:56] LABS: CALCIUM 7.5 MG/DL (8.5-10.1)
[2020-08-11 06:57] LABS: GLUCOSE 90 MG/DL (70-105); TOTAL PROTEIN 5.7 GM/DL (6.4-8.2)
[2020-08-11 06:58] LABS: CARBON DIOXIDE 15 MMOL/L (21-32)
[2020-08-11 06:59] LABS: BILIRUBIN,TOTAL 0.4 MG/DL (0.1-1.0)
[2020-08-11 07:00] LABS: ALKALINE PHOSPHATASE 104 U/L (40-136)
[2020-08-11 07:01] LABS: CREATININE SERUM 0.59 MG/DL (0.60-1.30); GFR ESTIMATED > 60
[2020-08-11 07:02] LABS: BUN/CREATININE RATIO 12
[2020-08-11 07:03] LABS: ALANINE AMINOTRANSFERASE 11 U/L (0-55)
[2020-08-11] MEDS: FERROUS SULF 325 MG (IRON) TAB PO SCH (08:21)
[2020-08-11] MEDS: DOCUSATE SODIUM 100 MG (COLACE) CAP PO SCH ×2 (08:22→20:28)
[2020-08-11] MEDS: ENOXAPARIN 40 MG/0.4 ML (LOVENOX) SYR SC SCH (12:02)
[2020-08-11] MEDS ORDERED: MILK OF MAGNESIA 400 MG/5 ML 30 ML UDC PO PRN (13:15)
[2020-08-11] MEDS ORDERED: SIMETHICONE 80 MG (MYLICON) CHEW PO PRN (13:15)
[2020-08-11] MEDS ORDERED: MILK OF MAGNESIA 400 MG/5 ML 30 ML UDC PO ONE (21:00)
[2020-08-12] MEDS ORDERED: IBUPROFEN 600 MG (MOTRIN) TAB PO ONE ×2 (01:53→10:19)
[2020-08-12 02:14] VITALS: BP 149/77
[2020-08-12 04:32] LABS: BASOPHILS # (AUTO) 0.1 10^3/uL (0.0-0.1); BASOPHILS % (AUTO) 0 % (0-10); EOSINOPHILS # (AUTO) 0.1 10^3/uL (0.0-0.3); EOSINOPHILS % (AUTO) 1 % (0-10); HEMATOCRIT 32 % (35-52); HEMOGLOBIN 10.5 g/dL (11.5-16.0); LYMPHOCYTES % (AUTO) 22 % (12-44); MEAN CORPUSCULAR HEMOGLOBIN 31 pg (25-34); MEAN CORPUSCULAR HGB CONC 33 g/dL (32-36); MEAN CORPUSCULAR VOLUME 93 fL (80-99); MEAN PLATELET VOLUME 10.4 fL (9.0-12.2); MONOCYTES # (AUTO) 0.6 10^3/uL (0.0-1.0); MONOCYTES % (AUTO) 5 % (0-12); NEUTROPHILS # (AUTO) 9.6 10^3/uL (1.8-7.8); NEUTROPHILS % (AUTO) 71 % (42-75); PLATELET COUNT 200 10^3/uL (130-400); WHITE BLOOD COUNT 13.4 10^3/uL (4.3-11.0)
[2020-08-12] MEDS ORDERED: MILK OF MAGNESIA 400 MG/5 ML 30 ML UDC PO PRN (05:00)
--- NOTE | 2020-08-12 06:58 | Anesthesia-Regional Post-Op ---
Regional Patient Condition Mental Status: Alert, Oriented x3 Circulation: Same as Pre-Op Headache: Absent Sensation: Full Recovery Motor Block: Absent Post Op Complications Complications None Follow Up Care/Instructions Patient Instructions None needed. Anesthesia/Patient Condition Patient is doing well, no complaints, stable vital signs, no apparent adverse anesthesia problems. No complications reported per nursing. D/C home per [facility] Criteria: No CARMELITA HUERTA CRNA Aug 12, 2020 06:58
[2020-08-12] MEDS: DOCUSATE SODIUM 100 MG (COLACE) CAP PO SCH ×2 (08:26→20:07)
[2020-08-12] MEDS: FERROUS SULF 325 MG (IRON) TAB PO SCH (08:26)
--- NOTE | 2020-08-12 08:47 | Postpartum Progress Note ---
Post Op Post-operative Day #1 Subjective: Patient is without complaints. Ambulating, voiding after thompson removed. Tolerating a regular diet without nausea or vomiting. Normal lochia. Pain is well controlled with oral pain medications. Passing flatus. breast feeding. Objective: VS - Last 72 Hours, by Label 08/10/20 08/10/20 08/10/20 08/10/20 16:30 16:30 17:30 18:00 Temp 36.5 36.5 Pulse 94 94 90 76 Resp 18 18 18 18 B/P (MAP) 137/86 (103) 149/84 (105) Pulse Ox 98 98 O2 Delivery Room Air Room Air Room Air Room Air 08/10/20 08/10/20 08/10/20 08/10/20 18:30 19:00 20:03 20:33 Temp 36.6 Pulse 87 82 Resp 18 18 18 18 B/P (MAP) 151/79 (103) 134/82 (99) O2 Delivery Room Air Room Air Room Air Room Air 08/10/20 08/11/20 08/11/20 08/11/20 21:53 00:07 00:26 02:25 Temp 36.1 Pulse 71 77 81 Resp 18 18 18 14 B/P (MAP) 141/93 (109) 173/87 (115) 141/92 (108) 82/51 (61) Pulse Ox 100 O2 Delivery Room Air Room Air Room Air Room Air 08/11/20 08/11/20 08/11/20 08/11/20 02:25 02:30 02:40 02:40 Resp 16 12 B/P (MAP) 88/51 (63) 98/62 (74) Pulse Ox 100 100 O2 Delivery Room Air Room Air Room Air Room Air 08/11/20 08/11/20 08/11/20 08/11/20 02:50 02:50 02:55 03:00 Resp 15 13 B/P (MAP) 101/ 100/68 (79) Pulse Ox 100 100 O2 Delivery Room Air Room Air Room Air Room Air 08/11/20 08/11/20 08/11/20 08/11/20 03:05 03:07 03:15 03:16 Temp 36.8 Resp 15 14 13 B/P (MAP) 73/49 (57) 101/65 (77) 106/68 (81) Pulse Ox 100 100 100 O2 Delivery Room Air Room Air Room Air Room Air 08/11/20 08/11/20 08/11/20 08/11/20 03:45 04:15 08:22 11:59 Temp 36.7 36.1 37.0 36.7 Pulse 77 79 64 79 Resp 18 18 18 18 B/P (MAP) 143/72 (95) 137/69 (91) 125/94 (104) 134/76 (95) Pulse Ox 97 97 O2 Delivery Room Air Room Air Room Air Room Air 08/11/20 08/11/20 08/11/20 08/12/20 16:22 20:00 21:30 02:14 Temp 36.8 36.7 37.0 Pulse 88 80 100 Resp 18 18 18 B/P (MAP) 128/66 (86) 168/79 (108) 150/80 (103) 149/77 (101) Pulse Ox 96 98 99 O2 Delivery Room Air Room Air Room Air Laboratory Tests Test 08/10/20 16:20 08/10/20 20:30 08/11/20 00:38 08/11/20 06:30 Range/Units Urine Color YELLOW Urine Clarity CLEAR Urine pH 6.0 5-9 Urine Specific [place] 1.010 L 1.016-1.022 Urine Protein 149 H 6-12 MG/DL Urine Glucose (UA) NEGATIVE NEGATIVE Urine Ketones NEGATIVE NEGATIVE Urine Nitrite NEGATIVE NEGATIVE Urine Bilirubin NEGATIVE NEGATIVE Urine Urobilinogen 0.2 < = 1.0 MG/DL Urine Leukocyte Esterase TRACE H NEGATIVE Urine RBC (Auto) 2+ H NEGATIVE Urine RBC 2-5 H /HPF Urine WBC 2-5 /HPF Urine Squamous Epithelial Cells 10-25 H /HPF Urine Crystals PRESENT H /LPF Urine Amorphous Sediment MOD MARJORIE URATES H /LPF Urine Bacteria TRACE /HPF Urine Casts NONE /LPF Urine Mucus NEGATIVE /LPF Urine Culture Indicated NO Urine Creatinine 39 30-125 MG/DL Urine Protein/Creatinine Ratio 3.82 Sodium Level 136 135 135-145 MMOL/L Potassium Level 3.6 3.9 3.6-5.0 MMOL/L Chloride Level 109 H 110 H 98-107 MMOL/L Carbon Dioxide Level 16 L 15 L 21-32 MMOL/L Anion Gap 11 10 5-14 MMOL/L Blood Urea Nitrogen 6 L 7 7-18 MG/DL Creatinine 0.59 L 0.59 L 0.60-1.30 MG/DL Estimat Glomerular Filtration Rate > 60 > 60 BUN/Creatinine Ratio 10 12 Glucose Level 111 H 90 70-105 MG/DL Uric Acid 6.7 2.6-7.2 MG/DL Calcium Level 8.5 7.5 L 8.5-10.1 MG/DL Corrected Calcium 9.4 8.7 8.5-10.1 MG/DL Total Bilirubin 0.2 0.4 0.1-1.0 MG/DL Aspartate Amino Transf (AST/SGOT) 18 20 5-34 U/L Alanine Aminotransferase (ALT/SGPT) 12 11 0-55 U/L Alkaline Phosphatase 127 104 40-136 U/L Lactate Dehydrogenase 181 261 H 125-220 U/L Total Protein 6.7 5.7 L 6.4-8.2 GM/DL Albumin 2.9 L 2.5 L 3.2-4.5 GM/DL White Blood Count 10.2 15.3 H 4.3-11.0 10^3/uL Red Blood Count 4.81 3.89 3.80-5.11 10^6/uL Hemoglobin 14.5 11.9 11.5-16.0 g/dL Hematocrit 44 35 35-52 % Mean Corpuscular Volume 91 89 80-99 fL Mean Corpuscular Hemoglobin 30 31 25-34 pg Mean Corpuscular Hemoglobin Concent 33 34 32-36 g/dL Red Cell Distribution Width 14.1 14.0 10.0-14.5 % Platelet Count 255 192 130-400 10^3/uL Mean Platelet Volume 10.3 10.3 9.0-12.2 fL Immature Granulocyte % (Auto) 0 0 % Neutrophils (%) (Auto) 62 78 H 42-75 % Lymphocytes (%) (Auto) 32 17 12-44 % Monocytes (%) (Auto) 5 5 0-12 % Eosinophils (%) (Auto) 1 0 0-10 % Basophils (%) (Auto) 1 0 0-10 % Neutrophils # (Auto) 6.4 11.9 H 1.8-7.8 10^3/uL Lymphocytes # (Auto) 3.2 2.5 1.0-4.0 10^3/uL Monocytes # (Auto) 0.5 0.7 0.0-1.0 10^3/uL Eosinophils # (Auto) 0.1 0.1 0.0-0.3 10^3/uL Basophils # (Auto) 0.1 0.1 0.0-0.1 10^3/uL Immature Granulocyte # (Auto) 0.0 0.1 0.0-0.1 10^3/uL Test 08/12/20 04:02 Range/Units White Blood Count 13.4 H 4.3-11.0 10^3/uL Red Blood Count 3.42 L 3.80-5.11 10^6/uL Hemoglobin 10.5 L 11.5-16.0 g/dL Hematocrit 32 L 35-52 % Mean Corpuscular Volume 93 80-99 fL Mean Corpuscular Hemoglobin 31 25-34 pg Mean Corpuscular Hemoglobin Concent 33 32-36 g/dL Red Cell Distribution Width 14.4 10.0-14.5 % Platelet Count 200 130-400 10^3/uL Mean Platelet Volume 10.4 9.0-12.2 fL Immature Granulocyte % (Auto) 0 % Neutrophils (%) (Auto) 71 42-75 % Lymphocytes (%) (Auto) 22 12-44 % Monocytes (%) (Auto) 5 0-12 % Eosinophils (%) (Auto) 1 0-10 % Basophils (%) (Auto) 0 0-10 % Neutrophils # (Auto) 9.6 H 1.8-7.8 10^3/uL Lymphocytes # (Auto) 3.0 1.0-4.0 10^3/uL Monocytes # (Auto) 0.6 0.0-1.0 10^3/uL Eosinophils # (Auto) 0.1 0.0-0.3 10^3/uL Basophils # (Auto) 0.1 0.0-0.1 10^3/uL Immature Granulocyte # (Auto) 0.1 0.0-0.1 10^3/uL Physical Exam: General - Alert and oriented, no apparent distress Abdomen - Soft, appropriately tender to palpation, non-distended, fundus firm at umbilicus Incision - clean, dry and intact; no erythema or induration, no drainage Extremities - no edema, negative Noemi's bilaterally Assessment: 1. post-operative day # 1, status post PLTCS/presentation. Recovering well, hemodynamically stable Acute blood loss anemia Plan: Routine post-operative care. Encourage breast feeding. Encourage ambulation. VTE prophylaxis: SCDs. Ferrous sulfate supplementation. Plan for discharge [] Vitals - Labs Vital Signs - I&O Vital Signs Date Time Temp Pulse Resp B/P (MAP) Pulse Ox O2 Delivery O2 Flow Rate FiO2 08/12/20 02:14 37.0 100 18 149/77 (101) 99 Room Air 08/11/20 21:30 150/80 (103) 08/11/20 20:00 36.7 80 18 168/79 (108) 98 Room Air 08/11/20 16:22 36.8 88 18 128/66 (86) 96 Room Air 08/11/20 11:59 36.7 79 18 134/76 (95) 97 Room Air I & O 08/12/20 07:00 Intake Total 600 ml Balance 600 ml Labs Laboratory Tests 08/12/20 04:02: White Blood Count 13.4H, Red Blood Count 3.42L, Hemoglobin 10.5L, Hematocrit 32L , Mean Corpuscular Volume 93, Mean Corpuscular Hemoglobin 31, Mean Corpuscular Hemoglobin Concent 33, Red Cell Distribution Width 14.4, Platelet Count 200, Mean Platelet Volume 10.4, Immature Granulocyte % (Auto) 0, Neutrophils (%) (Auto) 71, Lymphocytes (%) (Auto) 22, Monocytes (%) (Auto) 5, Eosinophils (%) (Auto) 1, Basophils (%) (Auto) 0, Neutrophils # (Auto) 9.6H, Lymphocytes # (Auto) 3.0, Monocytes # (Auto) 0.6, Eosinophils # (Auto) 0.1, Basophils # (Auto) 0.1, Immature Granulocyte # (Auto) 0.1 OTTO VALADEZ DO Aug 12, 2020 08:47
[2020-08-12] MEDS ORDERED: IBUPROFEN 800 MG (MOTRIN) TAB PO SCH (09:00)
[2020-08-12 10:15] VITALS: BP 145/77
[2020-08-12] MEDS: IBUPROFEN 600 MG (MOTRIN) TAB PO SCH ×2 (10:36→19:41)
[2020-08-12] MEDS ORDERED: IBUPROFEN 600 MG (MOTRIN) TAB PO SCH (12:00)
[2020-08-12] MEDS: ENOXAPARIN 40 MG/0.4 ML (LOVENOX) SYR SC SCH (12:53)
[2020-08-12 16:25] VITALS: BP 144/77
[2020-08-13 00:11] VITALS: BP 139/67
[2020-08-13] MEDS: IBUPROFEN 600 MG (MOTRIN) TAB PO SCH ×2 (00:14→06:08)
[2020-08-13 06:10] VITALS: BP 145/82
--- NOTE | 2020-08-13 07:34 | Postpartum Progress Note ---
Post Op Post-operative Day #2 s/p PLTCS Subjective: Patient is without complaints. Ambulating, voiding after thompson removed. Tolerating a regular diet without nausea or vomiting. Normal lochia. Pain is well controlled with oral pain medications. Passing flatus. breast feeding. [] Objective: Vital Signs 08/12/20 08/13/20 16:25 06:10 Temp 36.4 Pulse 79 Resp 18 B/P (MAP) 145/82 (103) Pulse Ox 98 O2 Delivery Room Air Physical Exam: General - Alert and oriented, no apparent distress Abdomen - Soft, appropriately tender to palpation, non-distended, fundus firm at umbilicus Incision - clean, dry and intact; no erythema or induration, no drainage Extremities - no edema, negative Noemi's bilaterally Assessment: 1. post-operative day # 2, status post PLTCS. Recovering well, hemodynamically stable Acute blood loss anemia Plan: Routine post-operative care. Encourage breast feeding. Encourage ambulation. VTE prophylaxis: SCDs. Ferrous sulfate supplementation. Plan for discharge today Vitals - Labs Vital Signs - I&O Vital Signs Date Time Temp Pulse Resp B/P (MAP) Pulse Ox O2 Delivery O2 Flow Rate FiO2 08/13/20 06:10 36.4 79 18 145/82 (103) 98 08/13/20 00:11 36.4 85 17 139/67 (91) 95 08/12/20 16:25 36.3 94 18 144/77 (99) 98 Room Air 08/12/20 10:15 37.1 99 18 145/77 (99) 97 Room Air OTTO VALADEZ DO Aug 13, 2020 07:34
[2020-08-13] MEDS ORDERED: OXC5T PO (07:35)
[2020-08-13] MEDS ORDERED: ACET-93 PO (07:35)
[2020-08-13] MEDS ORDERED: IBUP-844 PO (07:35)
[2020-08-13] MEDS ORDERED: DCS100C PO (07:35)
[2020-08-13] MEDS ORDERED: FERR325T18 PO (07:35)
--- NOTE | 2020-08-13 07:37 | Short Stay Summary ---
Discharge Summary Hospital Course Was the Problem List Reviewed?: Yes Final Diagnosis: malposition; proteinuria; advanced maternal Hospital Course Date of Admission: Aug 11, 2020 at 00:30 Admission Diagnosis : Family Physician/Provider: Yanick Solo MD Date of Discharge: 08/13/20 Discharge Diagnosis: [ ] Hospital Course: [ ] Labs and Pending Lab Test: Home Meds Active Reported Vitamin Tablet ( Vit No.124/Iron/FA) 1 Each Tablet 1 Each PO DAILY Discharge Instructions Discharge Diet: No Restrictions Discharge Physical Examination General Appearance: Alert HEENT: Atraumatic Respiratory: Clear to Auscultation, Normal Air Movement Cardiovascular: Regular Rate, Normal S1, Normal S2 Allergies: Coded Allergies: NKANo Known Allergies (Verified Allergy, Unknown, 09/08/05) Discharge Summary Date of Admission Aug 11, 2020 at 00:30 Date of Discharge OTTO VALADEZ DO Aug 13, 2020 07:37
--- NOTE | 2020-08-13 07:38 | Discharge Inst-Women's Service ---
Discharge Inst-Women's Serv Depart Medication/Instructions New, Converted or Re-Newed RX: RX on Chart Instructions no lifting over 25 lbs nothing in the vagina keep incision clean and dry no driving for 1week Final Diagnosis advanced maternal age labor malpresentation proteinuria Problems Reviewed?: Yes Consults/Follow Up Additional Follow Up: Yes ([address] Pinto and 4-[address] Solo) Activity Activity: Activity as Tolerated Driving Instructions: No Driving for 1 Week NO SMOKING: NO SMOKING Nothing Inside Vagina: No Douching, No [place], No Tampons Diet Discharge Diet: No Restrictions Symptoms to Report to : Swelling Increased, Bleeding Excessive, Pain Increased, Fever Over 101 Degrees F, Vaginal Bleeding Increase, Cramps in Feet or Legs, Vaginal Discharge Foul For Any Problems or Questions: Contact Your Physician Skin/Wound Care Infection Signs and Symptoms: Increased Redness, Foul Odor of Wound, Increased Drainage, Skin Itchy or Has a Rash, Increased Swelling, Temperature Above 101 F Operative Area Clean and Dry: Keep Incision Clean/Dry Stitches/Atul/Dermabond: Dermabond Bathing Instructions: OTTO Dietz DO Aug 13, 2020 07:38
[2020-08-13] MEDS: DOCUSATE SODIUM 100 MG (COLACE) CAP PO SCH (08:03)
[2020-08-13] MEDS: FERROUS SULF 325 MG (IRON) TAB PO SCH (08:03)
[2020-08-13] MEDS: ACETAMINOPHEN 500 MG TAB (TYLENOL) PO SCH (08:03)
[2020-08-13 11:35] VITALS: BP 145/82
== END 2020-08-13 11:35 | disposition home or self-care (01) | DRG 787 ==
LOC: LDRP 16:08 → WSo 16:08 → LDRP 18:38 → WSo 08-11 00:30 → LDRP 08-11 05:52
PROVIDERS: ADMIT Obstetrics & Gynecology; ATTEND Obstetrics & Gynecology
PROC: 10D00Z1 Extraction of Products of Conception, Low, Open Approach (ICD-10-PCS; principal; 2020-08-11 01:22)
DX: O32.2XX0 Maternal care for transverse and oblique lie, not applicable or unspecified (principal); D62 Acute posthemorrhagic anemia; Z3A.38 38 weeks gestation of pregnancy; Z37.0 Single live birth; O12.14 Gestational proteinuria, complicating childbirth; O90.81 Anemia of the puerperium
CPT/HCPCS: 36415; 80053; 81000; 82570; 83615; 84156; 84550; 85025; 86850; 86900; 86901; 94664; 99212

== ENCOUNTER 2021-11-17 13:57 | Emergency (ER) | payer OTHER ==
[~2021-11-17] VITALS: Ht 160 cm; Wt 72.8 kg
[~2021-11-17 13:57] MED LIST changes: +ACET-93 PO; +DOCU-239 PO; +FERR325T18 PO; +IBUP-844 PO; +OXC5T PO; -SULF1TAB35 PO; +SULF1TAB38 PO
[2021-11-17] MEDS ORDERED: ASPIRIN 81 MG CHEW (CHILDREN'S ASA) PO ONE (14:30)
--- NOTE | 2021-11-17 14:59 | Diagnostic Imaging Report ---
INDICATION: Chest pain Frontal chest at 0240 p.m. Heart and mediastinal silhouette are normal in appearance. The lungs are clear. There is no pneumothorax or pleural fluid. IMPRESSION: Negative chest. Dictated by: Dictated on workstation # [id number]
--- NOTE | 2021-11-17 15:17 | ED Chest Pain ---
General Chief Complaint: Chest Pain Stated Complaint: CP, Nursing Triage Note: Patient ambulates to room 10. She states that this chest pain started last night, rating it about an 8/10. She states that she also has pressure in her head making her feel like she is "going to fall over." The last episode of chest pain this patient experienced was in August of 2021. History of Present Illness Date Seen by Provider: Nov 17, 2021 Time Seen by Provider: 14:08 Initial Comments 46 year old female presents for intermittent chest pain over the last 24 hours. She had similar symptoms in August and on November 08. No hx of CAD, diabetes, or cardiac work up. No family history of cardiac events. She has never been evaluated by property management assistant or discussed these symptoms with her PCP. her daughter is 12 months old and she is . Timing/Duration: 24 hours Severity/Quality: mild (4-8/10) Location: substernal Radiation: no radiation ASA po [facility]: No NTG SL [facility]: No Associated Symptoms: No abdominal pain, No back pain, No diaphoresis, No edema, No fever/chills, No headache, No heartburn, No nausea/vomiting, No shortness of breath, No syncope, No weakness Allergies and Home Medications Allergies Coded Allergies: NKANo Known Allergies (Verified Allergy, Unknown, 09/08/05) Patient Home Medication List Home Medication List Reviewed: Yes Acetaminophen (Acetaminophen) 500 Mg Tablet, 1,000 MG PO Q8HR Prescribed by: OTTO VALADEZ on 08/13/2035 Docusate Sodium (Dok) 100 Mg Capsule, 100 MG PO BID Prescribed by: OTTO VALADEZ on 08/13/20 0735 Ferrous Sulfate (Ferrous Sulfate) 325 Mg Tablet, 325 MG PO DAILY@0700 Prescribed by: OTTO VALADEZ on 08/13/20 0735 Ibuprofen (Ibu) 600 Mg Tablet, 600 MG PO Q6HR Prescribed by: OTTO VALADEZ on 08/13/20 0735 Oxycodone Hcl (Oxyir Tablet) 5 Mg Tab, 5 MG PO Q6H Prescribed by: OTTO VALADEZ on 08/13/20 0735 Pantoprazole Sodium (Protonix) 20 Mg Tablet.dr, 20 MG PO DAILY Prescribed by: COLLEEN LUNA on 11/17/21 1636 Vit No.124/Iron/FA ( Vitamin Tablet) 1 Each Tablet, 1 EACH PO DAILY, (Reported) Entered as Reported by: MELVIN MOSES on 07/12/20 0424 Review of Systems Review of Systems Constitutional: no symptoms reported, see HPI Respiratory: No Symptoms Reported, See HPI; Denies Shortness of Air Cardiovascular: See HPI, Chest Pain Gastrointestinal: No Symptoms Reported, See HPI Genitourinary: No Symptoms Reported, See HPI All Other Systems Reviewed Negative Unless Noted: Yes Past Ehkxwht-Hdgirk-Yccaer Hx Patient Social History Tobacco Use?: No Smoking Status: Never a Smoker Substance use?: No Alcohol Use?: No Pt feels they are or have been: No Immunizations Up To Date Tetanus Booster (TDap): Unknown PED Vaccines UTD: Yes First/Initial COVID19 Vaccinat: Unknown date Second COVID19 Vaccination Trey: Unknown date Seasonal Allergies Seasonal Allergies: Yes Past Medical History Surgery/Hospitalization HX: None Surgeries: Yes Appendectomy Respiratory: No Currently Using CPAP: No Currently Using BIPAP: No Cardiac: No Neurological: No Reproductive Disorders: No Female Reproductive Disorders: Denies Genitourinary: No Gastrointestinal: No Musculoskeletal: No Endocrine: No HEENT: No Cancer: No Psychosocial: No Integumentary: No Blood Disorders: No Family Medical History Reviewed Nursing Family Hx Physical Exam Vital Signs Vital Signs - First Documented 11/17/21 14:05 Temp 36.4 Pulse 82 Resp 20 B/P (MAP) 145/97 (113) Pulse Ox 97 O2 Delivery Room Air Capillary Refill : Height, Weight, BMI Height: 5'1.00" Weight: 160lbs. oz. 72.496500ma; 28.00 BMI Method:Stated General Appearance: No Apparent Distress, WD/WN HEENT: PERRL/EOMI, TMs Normal, Normal ENT Inspection, Pharynx Normal Neck: Full Range of Motion, Normal Inspection, Non Tender, Supple Respiratory: Chest Non Tender, Lungs Clear, Normal Breath Sounds Cardiovascular: Regular Rate, Rhythm, No Edema, Normal Peripheral Pulses Gastrointestinal: Normal Bowel Sounds, Non Tender, Soft Extremity: Normal Capillary Refill, Normal Inspection, Normal Range of Motion, Non Tender Neurologic/Psychiatric: Alert, Oriented x3, No Motor/Sensory Deficits, Normal Mood/Affect Skin: Normal Color, Warm/Dry; No Diaphoresis Progress/Results/Core Measures Results/Orders Lab Results Laboratory Tests Test 11/17/21 14:50 Range/Units White Blood Count 9.8 4.3-11.0 10^3/uL Red Blood Count 4.73 3.80-5.11 10^6/uL Hemoglobin 13.7 11.5-16.0 g/dL Hematocrit 42 35-52 % Mean Corpuscular Volume 88 80-99 fL Mean Corpuscular Hemoglobin 29 25-34 pg Mean Corpuscular Hemoglobin Concent 33 32-36 g/dL Red Cell Distribution Width 12.2 10.0-14.5 % Platelet Count 287 130-400 10^3/uL Mean Platelet Volume 10.2 9.0-12.2 fL Immature Granulocyte % (Auto) 1 % Neutrophils (%) (Auto) 60 42-75 % Lymphocytes (%) (Auto) 32 12-44 % Monocytes (%) (Auto) 5 0-12 % Eosinophils (%) (Auto) 1 0-10 % Basophils (%) (Auto) 1 0-10 % Neutrophils # (Auto) 5.9 1.8-7.8 10^3/uL Lymphocytes # (Auto) 3.1 1.0-4.0 10^3/uL Monocytes # (Auto) 0.5 0.0-1.0 10^3/uL Eosinophils # (Auto) 0.1 0.0-0.3 10^3/uL Basophils # (Auto) 0.1 0.0-0.1 10^3/uL Immature Granulocyte # (Auto) 0.1 0.0-0.1 10^3/uL Prothrombin Time 12.5 12.2-14.7 SEC INR Comment 0.9 0.8-1.4 Activated Partial Thromboplast Time 32 24-35 SEC Sodium Level 137 135-145 MMOL/L Potassium Level 4.5 3.6-5.0 MMOL/L Chloride Level 106 98-107 MMOL/L Carbon Dioxide Level 20 L 21-32 MMOL/L Anion Gap 11 5-14 MMOL/L Blood Urea Nitrogen 10 7-18 MG/DL Creatinine 0.63 0.60-1.30 MG/DL Estimat Glomerular Filtration Rate 111 BUN/Creatinine Ratio 16 Glucose Level 104 70-105 MG/DL Calcium Level 9.7 8.5-10.1 MG/DL Corrected Calcium 9.5 8.5-10.1 MG/DL Magnesium Level 1.8 1.6-2.4 MG/DL Total Bilirubin 0.3 0.1-1.0 MG/DL Aspartate Amino Transf (AST/SGOT) 23 5-34 U/L Alanine Aminotransferase (ALT/SGPT) 16 0-55 U/L Alkaline Phosphatase 97 40-136 U/L Myoglobin 15.5 10.0-92.0 NG/ML Troponin I < 0.028 <0.028 NG/ML Total Protein 9.0 H 6.4-8.2 GM/DL Albumin 4.3 3.2-4.5 GM/DL My Orders Orders - COLLEEN LUNA Cbc With Automated Diff (11/17/21 14:20) Magnesium (11/17/21 14:20) Chest 1 View, Ap/Pa Only (11/17/21 14:20) Comprehensive Metabolic Panel (11/17/21 14:20) Myoglobin Serum (11/17/21 14:20) Protime With Inr (11/17/21 14:20) Partial Thromboplastin Time (11/17/21 14:20) O2 (11/17/21 14:20) Monitor-Rhythm Ecg Trace Only (11/17/21 14:20) Ed Iv/Invasive Line Start (11/17/21 14:20) Troponin I Wright (11/17/21 14:20) Aspirin Chewable Tablet (Baby Aspirin Ch (11/17/21 14:30) Urine Bedside (11/17/21 14:59) Lidocaine 2% Viscous 15 Ml (Xylocaine Vi (11/17/21 16:15) Antacid Suspension (Mylanta Suspension (11/17/21 16:15) Medications Given in ED Current Medications Medications Dose Ordered Sig/Edwin Route Start Time Stop Time Status Last Admin Dose Admin Al Hydrox/Mg Hydrox/Simethicone 30 ml ONCE ONCE PO 11/17/21 16:15 11/17/21 16:16 DC 11/17/21 16:19 30 ML Aspirin 324 mg ONCE ONCE PO 11/17/21 14:30 11/17/21 14:31 DC 11/17/21 14:46 324 MG Lidocaine HCl 15 ml ONCE ONCE PO 11/17/21 16:15 11/17/21 16:16 DC 11/17/21 16:19 15 ML Vital Signs/I&O 11/17/21 11/17/21 14:05 16:41 Temp 36.4 36.8 Pulse 82 75 Resp 20 20 B/P (MAP) 145/97 (113) 157/111 Pulse Ox 97 97 O2 Delivery Room Air Room Air Blood Pressure Mean: 113 Progress Progress Note : Time: 14:08 Progress Note Patient seen and evaluated, will give aspirin, labs, EKG and chest x-ray. We will continue to monitor. 1500 mild improvement in symptoms. 1545 Will try GI Cocktail and re-evaluate. 1620 Patient reports improvement after GI Cocktail. Will give Protonix to use for 1 month. Discharge instructions and return precautions reviewed. Initial ECG Impression Date: Nov 17, 2021 Initial ECG Impression Time: 14:13 Initial ECG Rate: 62 Initial ECG Rhythm: Normal Sinus Initial ECG Intervals: Normal Initial ECG Intervals MI 190, QRS D 80, QT 424, QTc 429. [place] P 21, R 41, T 34. Initial ECG Impression: Normal Initial ECG Comparisson: No Previous ECG Available Diagnostic Imaging Diagonstic Imaging: Xray Plain Films/CT/US/NM/MRI: chest Comments NAME: [facility] REC#: [id number] PT STATUS: REG ER : 1975 PHYSICIAN: COLLEEN LUNA ADMIT DATE: 11/17/21/ER Signed Date of Exam:11/17/21 CHEST 1 VIEW, AP/PA ONLY INDICATION: Chest pain Frontal chest at 0240 p.m. Heart and mediastinal silhouette are normal in appearance. The lungs are clear. There is no pneumothorax or pleural fluid. IMPRESSION: Negative chest. Dictated by: Dictated on workstation # [id number] Dict: 11/17/21 1453 Trans: 11/17/21 1522 [facility] [id number] Interpreted by: ROSY QUIROGA MD Electronically signed by: ROSY QUIROGA MD 11/17/21 152 Reviewed: Reviewed by Me Departure Impression Primary Impression: Chest pain Qualified Codes: R07.9 - Chest pain, unspecified Additional Impression: GERD (gastroesophageal reflux disease) Qualified Codes: K21.9 - Gastro-esophageal reflux disease without esophagitis Disposition: HOME, SELF-CARE Condition: Improved Departure-Patient Inst. Decision time for Depature: 16:30 Referrals: ANASTASIA DUNN MD FACP [facility] ELLA WADE MD (PCP/Family) Primary Care Physician Patient Instructions: Acid Reflux and GERD in Adults (DC), Chest Pain That Is Not Caused by the Heart (DC) Add. Discharge Instructions: Eat a bland diet, avoid greasy, spicy, or fried foods Take protonix as prescribed. Follow up with Dr. Key, in 2 weeks, sooner if symptoms are not improving. Take Aspirin 81 mg daily. Schedule appt with Cardiology. Return to the Emergency Dept for new, urgent healthcare needs. All discharge instructions reviewed with patient and/or family. Voiced understanding. Scripts Pantoprazole Sodium (Protonix) 20 Mg Tablet. 20 MG PO DAILY, #30 TAB 0 Refills Prov: COLLEEN LUNA 11/17/21 Copy Copies To 1: ELLA WADE MD, AMY ARNP Nov 17, 2021 15:17
[2021-11-17 15:21] LABS: ALBUMIN 4.3 GM/DL (3.2-4.5); POTASSIUM 4.5 MMOL/L (3.6-5.0)
[2021-11-17 15:22] LABS: CALCIUM 9.7 MG/DL (8.5-10.1)
[2021-11-17 15:23] LABS: INR 0.9 (0.8-1.4); PROTHROMBIN TIME PATIENT 12.5 SEC (12.2-14.7)
[2021-11-17 15:24] LABS: BASOPHILS # (AUTO) 0.1 10^3/uL (0.0-0.1); BASOPHILS % (AUTO) 1 % (0-10); EOSINOPHILS # (AUTO) 0.1 10^3/uL (0.0-0.3); EOSINOPHILS % (AUTO) 1 % (0-10); HEMATOCRIT 42 % (35-52); HEMOGLOBIN 13.7 g/dL (11.5-16.0); LYMPHOCYTES # (AUTO) 3.1 10^3/uL (1.0-4.0); LYMPHOCYTES % (AUTO) 32 % (12-44); MEAN CORPUSCULAR HEMOGLOBIN 29 pg (25-34); MEAN CORPUSCULAR HGB CONC 33 g/dL (32-36); MEAN CORPUSCULAR VOLUME 88 fL (80-99); MEAN PLATELET VOLUME 10.2 fL (9.0-12.2); MONOCYTES # (AUTO) 0.5 10^3/uL (0.0-1.0); MONOCYTES % (AUTO) 5 % (0-12); NEUTROPHILS # (AUTO) 5.9 10^3/uL (1.8-7.8); NEUTROPHILS % (AUTO) 60 % (42-75); PLATELET COUNT 287 10^3/uL (130-400); WHITE BLOOD COUNT 9.8 10^3/uL (4.3-11.0)
[2021-11-17 15:25] LABS: BILIRUBIN,TOTAL 0.3 MG/DL (0.1-1.0)
[2021-11-17 15:27] LABS: CREATININE SERUM 0.63 MG/DL (0.60-1.30)
[2021-11-17 15:30] LABS: MAGNESIUM 1.8 MG/DL (1.6-2.4)
[2021-11-17] MEDS ORDERED: ANTACID SUSP 30 ML UDC (MYLANTA) PO ONE (16:15)
[2021-11-17] MEDS ORDERED: LIDOCAINE 2% VISCOUS 15 ML UDC PO ONE (16:15)
[2021-11-17] MEDS ORDERED: PANT20TA2 PO (16:36)
[2021-11-17 16:41] VITALS: BP 157/111
== END 2021-11-17 16:41 | disposition home or self-care (01) ==
LOC: EDUNIT# 13:57 → ER 13:58
DX: K21.9 Gastro-esophageal reflux disease without esophagitis (principal); Z28.310 Unvaccinated for COVID-19
CPT/HCPCS: 36415; 71045; 80053; 83735; 83874; 84484; 84703; 85025; 85610; 85730; 93005; 93041